=== PATIENT | male | born 1940 | race Caucasian/White ===

== ENCOUNTER → 2016-05-16 | Outpatient (CLI) | payer OTHER ==
[2013-12-09 09:33] VITALS: BP 157/81
[~2016-05-16] MED LIST: ASPI81TA2 PO; CHOL100013 PO; FURO-69 PO; GABA-586 PO; INSU100I13 SQ; LISI10TA2 PO; METF850T2 PO; MULT-208 PO
== END | disposition home or self-care (01) ==
LOC: SPEC 16:50
PROVIDERS: ATTEND Podiatrist Foot & Ankle Surgery
DX: L97.512 Non-pressure chronic ulcer of other part of right foot with fat layer exposed (principal)
CPT/HCPCS: 87071; 87075; 87186; 87205

== ENCOUNTER 2016-07-30 18:09 | Inpatient (IN) | payer OTHER ==
[~2016-07-30] VITALS: Ht 177.8 cm; Wt 141.7 kg
--- NOTE | 2016-07-30 18:25 | PHYS DOC ---
Past Medical History Past Medical History: Diabetes-Type II, High Cholesterol, Hypertension Adult General HPI HPI Patient is a 75 year old MALE who presents with DYSPNEA Pt states 2 weeks of dyspnea, at rest and with exertion. Cough for 2 weeks. No chest pain, no abdominal pain Nausea but no vomiting, no diarrhea, no melena, no Fever or chills Worsening symptoms and went tot PCP today. Pt not well and PCP call EMS to transport to ER for eval. Review of Systems Review of Systems Constitutional: Denies fever or chills [] Eyes: Denies change in visual acuity, redness, or eye pain [] HENT: Denies nasal congestion or sore throat [] Respiratory: Dry cough, dyspnea, no hemoptysis Cardiovascular: no chest pain, no syncope GI: Denies abdominal pain, nausea, vomiting, bloody stools or diarrhea [] : Denies dysuria or hematuria [] Musculoskeletal: Denies back pain or joint pain [] Integument: Denies rash or skin lesions [] Neurologic: Denies headache, focal weakness or sensory changes [] Current Medications Current Medications Current Medications Medications (Trade) Dose Ordered Sig/Gely Start Time Stop Time Status Last Admin Dose Admin Dextrose (Dextrose 50%-Water Syringe) 25 gm 1X ONCE 07/30/16 19:30 07/30/16 19:31 DC 07/30/16 19:25 25 GM Vancomycin HCl 1.25 gm/Sodium Chloride 250 ml @ 166.667 mls/hr 1X ONCE 07/30/16 19:30 07/30/16 20:59 UNV zosyn 3.375g IVPB Allergies Allergies Allergies Coded Allergies Type Severity Reaction Last Updated Verified No Known Drug Allergies 12/09/13 No Physical Exam Physical Exam Constitutional: Well developed, well nourished, no acute distress, non-toxic appearance. [] HENT: Normocephalic, atraumatic, bilateral external ears normal, oropharynx moist, no oral exudates, nose normal. [] Eyes: PERRLA, EOMI, conjunctiva normal, no discharge. [] Neck: Normal range of motion, no tenderness, supple, no stridor. [] Cardiovascular:Heart rate regular rhythm, no murmur [] Lungs & Thorax: Bilateral breath sounds clear to auscultation [] Abdomen: Bowel sounds normal, soft, no tenderness, no masses, no pulsatile masses. [] Skin: Warm, dry, no erythema, no rash. [] Back: No tenderness, no CVA tenderness. [] Extremities: No tenderness, no cyanosis, no clubbing, ROM intact, no edema. [] Neurologic: Alert and oriented X 3, normal motor function, normal sensory function, no focal deficits noted. [] Psychologic: Affect normal, judgement normal, mood normal. [] Current Patient Data Vital Signs Vital Signs Date Time Temp Pulse Resp B/P (MAP) Pulse Ox O2 Delivery O2 Flow Rate FiO2 07/30/16 19:23 70 135/68 (90) 97 Nasal Cannula 4.0 07/30/16 18:15 97.6 20 97.6 Lab Values Laboratory Tests Test 07/30/16 18:45 White Blood Count 10.2 x10^3/uL (4.0-11.0) Red Blood Count 4.72 x10^6/uL (4.30-5.70) Hemoglobin 13.9 g/dL (13.0-17.5) Hematocrit 44.0 % (39.0-53.0) Mean Corpuscular Volume 93 fL (79-100) Mean Corpuscular Hemoglobin 30 pg (25-35) Mean Corpuscular Hemoglobin Concent 32 g/dL (31-37) Red Cell Distribution Width 17.2 % (11.5-14.5) H Platelet Count 261 x10^3/uL (140-400) Neutrophils (%) (Auto) 68 % (31-73) Lymphocytes (%) (Auto) 19 % (24-48) L Monocytes (%) (Auto) 10 % (0-9) H Eosinophils (%) (Auto) 2 % (0-3) Basophils (%) (Auto) 1 % (0-3) Neutrophils # (Auto) 7.0 x10^3uL (1.8-7.7) Lymphocytes # (Auto) 1.9 x10^3/uL (1.0-4.8) Monocytes # (Auto) 1.1 x10^3/uL (0.0-1.1) Eosinophils # (Auto) 0.2 x10^3/uL (0.0-0.7) Basophils # (Auto) 0.1 x10^3/uL (0.0-0.2) Prothrombin Time 14.5 SEC (11.7-14.0) H Prothrombin Time INR 1.2 (0.8-1.1) H D-Dimer (Alecia) 2.31 ug/mlFEU (0.00-0.50) H Sodium Level 142 mmol/L (136-145) Potassium Level 5.4 mmol/L (3.5-5.1) H Chloride Level 109 mmol/L (98-107) H Carbon Dioxide Level 23 mmol/L (21-32) Anion Gap 10 (6-14) Blood Urea Nitrogen 39 mg/dL (8-26) H Creatinine 1.5 mg/dL (0.7-1.3) H Estimated GFR (Cockcroft-Gault) 45.6 Glucose Level 34 mg/dL (70-99) *L Lactic Acid Level 1.6 mmol/L (0.4-2.0) Calcium Level 8.6 mg/dL (8.5-10.1) Magnesium Level 2.2 mg/dL (1.8-2.4) Total Bilirubin 0.9 mg/dL (0.2-1.0) Direct Bilirubin 0.3 mg/dL (0.0-0.2) H Aspartate Amino Transferase (AST) 22 U/L (15-37) Alanine Aminotransferase (ALT) 19 U/L (16-63) Alkaline Phosphatase 83 U/L (46-116) Creatine Kinase 74 U/L (39-308) Creatine Kinase MB (Mass) 5.4 ng/mL (0.0-3.6) H Creatine Kinase MB Relative Index % (0-4) Troponin I Quantitative 0.298 ng/mL (0.000-0.055) IL-Atl-K-Type Natriuretic Peptide 8725 pg/mL (0-449) H Total Protein 7.1 g/dL (6.4-8.2) Albumin 2.7 g/dL (3.4-5.0) L Laboratory Tests 07/30/16 18:45 Laboratory Tests 07/30/16 18:45 EKG EKG EKG 1817 IRREGULAR IRREGULAR LIKELY AFIB/FLUTTER, LOW VOLTAGE, NO STEMI, NONSPECIFIC ST T WAVE CHANGES[] Radiology/Procedures Radiology/Procedures ATIENT: SARABJIT KEEN ACCOUNT: [id number] : 1940 LOCATION: ER AGE: 75 SEX: M EXAM STATUS: REG ER ORD. PHYSICIAN: KOFI MONTES DE OCA MD REASON: CHEST PAIN PROCEDURE: CT CHEST WO CONTRAST PROCEDURE Chest CT without contrast. HISTORY Shortness of air, chest pain TECHNIQUE Noncontrast CT imaging was performed of the chest. Multiplanar reconstruction images are submitted. Exposure: One or more of the following individualized dose reduction techniques were utilized for this exam: 1. Automated exposure control. 2. Adjustment of the mA and/or kV according to patient size. 3. Use of iterative reconstruction technique. COMPARISON None other than chest radiograph earlier the same day FINDINGS There is small right pleural effusion and very small trace left pleural effusion. There is some consolidation of the right middle lobe with air bronchograms. There is also 6 cm transverse focus of density more posteriorly in the region of right lower lobe which may be due to lung consolidation although otherwise cannot exclude underlying mass. There is mild atelectasis posteriorly of the right upper lobe. There is a small quantity of perihepatic fluid present. There is fairly prominent coronary calcification. There is borderline ectatic ascending thoracic aorta 3.6 centimeters, some scattered plaque present. There is no abnormal pericardial effusion. Mild atelectasis left lower lobe. There is no pneumothorax. There is centrilobular emphysema. There is mild diffuse ground-glass density bilaterally. The major airways are patent. There may be pericholecystic fluid although poorly evaluated on this exam. There is multilevel thoracic spondylosis. There is elevation right hemidiaphragm. IMPRESSION 1. There is small dependent right pleural effusion, trace left pleural effusion. There is some consolidation with air bronchograms right middle lobe. There is also more confluent density without significant air bronchograms more posteriorly of the right maksim thorax, may be due to component of lung consolidation of the right lower lobe although underlying mass not excludable by this exam for which attention on short-term followup advised. 2. There is coronary calcification. 3. There is mild perihepatic fluid. There may be pericholecystic fluid although poorly evaluated on this exam. 4. There is emphysema. There is mild ground-glass density bilaterally, could be due to underlying edema. Electronically signed by: Shad Dupree MD (July 30, 2016 20:28:17) DICTATED and SIGNED BY: EFREN DUPREE MD DATE: 07/30/162027 CC: KOFI MONTES DE OCA MD; ARTURO SILVA MD ~ ATIENT: SARABJIT KEEN ACCOUNT: [id number] : 1940 LOCATION: ER AGE: 75 SEX: M EXAM STATUS: REG ER ORD. PHYSICIAN: KOFI MONTES DE OCA MD REASON: DYSPNEA PROCEDURE: PORTABLE CHEST 1V PROCEDURE Single-view chest. HISTORY Dyspnea COMPARISON None available FINDINGS AP upright portable view of the chest is submitted. Patient is rotated for exam. No obvious pneumothorax is identified. There are suspected small to moderate right and small left pleural effusions. There is airspace opacity of the lung bases bilaterally greater on the right, also interstitial opacity with basilar predominance. IMPRESSION Exam is degraded by rotation for exam. There are right greater than left pleural effusions and bibasilar airspace and interstitial opacity greater on the right which could be due to edema although pneumonia not excluded. Electronically signed by: Shad Dupree MD (July 30, 2016 19:37:30) DICTATED and SIGNED BY: EFREN DUPREE MD DATE: 07/30/161936 [] Impressions: 1. Dyspnea 2. Pneumonia with pleural effusion 3. Hypoxia 4. Possible PE, elevated Ddimer 5. Hypoglycemia 6. Cellulitis R leg 7. Elevated Ddimer 8. Hyperkalemia 9. New onset Afib Course & Med Decision Making Course & Med Decision Making Pertinent Labs and Imaging studies reviewed. (See chart for details) Pneumonia, poss PE but unable to get chest CT because of elevated creatinine 1.5 HIgh suspicion with elevated Ddimer but with abnormal CXR VQ will probably be intermediate (discussed with radiology) After discussion with service greeter will give one dose Lovenx and order venous duplex. Discussed with pt and family poss side effect of bleeding but at this point with high suspicion of PE benefits outweigh risks. Gave pt Zosyn for pneumonia and Vancomycin for cellulitis leg Gave amp of D50 for hypogylemia Consulted Cardiology for elevated troponin and new onset afib with elevated BNP Lovenox for afib and discussed with Cardiology by phone Called Dr. Fernando Silva PCP who accepted pt for admission Departure Departure Impression: Primary Impression: Dyspnea Additional Impressions: Pneumonia Elevated troponin Hypoglycemia Atrial fib/flutter, transient Hyperkalemia Disposition: ADMITTED INPATIENT Admitting Physician: Arturo Silva Condition: GUARDED Referrals: ARTURO SILVA MD (PCP) Problem Qualifiers KOFI MONTES DE OCA MD July 30, 2016 18:25
[2016-07-30 18:56] LABS: BASO # 0.1 x10^3/uL (0.0-0.2); BASO % 1 % (0-3); EOS % 2 % (0-3); HEMOGLOBIN 13.9 g/dL (13.0-17.5); LYMPH # 1.9 x10^3/uL (1.0-4.8); LYMPH % 19 % (24-48); MEAN CORPUSCULAR HEMOGLOBIN 30 pg (25-35); MEAN CORPUSCULAR HGB CONC 32 g/dL (31-37); MEAN CORPUSCULAR VOLUME 93 fL (79-100); MONO % 10 % (0-9); NEUT % 68 % (31-73); PLATELET COUNT 261 x10^3/uL (140-400); RED BLOOD COUNT 4.72 x10^6/uL (4.30-5.70); RED CELL DISTRIBUTION WIDTH 17.2 % (11.5-14.5); WHITE BLOOD COUNT 10.2 x10^3/uL (4.0-11.0)
[2016-07-30 19:05] LABS: INR 1.2 (0.8-1.1); PROTHROMBIN TIME PATIENT 14.5 SEC (11.7-14.0)
[2016-07-30 19:14] LABS: ALBUMIN 2.7 g/dL (3.4-5.0); CALCIUM 8.6 mg/dL (8.5-10.1); CREATININE 1.5 mg/dL (0.7-1.3); DIRECT BILIRUBIN 0.3 mg/dL (0.0-0.2); GFR 45.6; MAGNESIUM 2.2 mg/dL (1.8-2.4); POTASSIUM 5.4 mmol/L (3.5-5.1); TOTAL BILIRUBIN 0.9 mg/dL (0.2-1.0); TOTAL PROTEIN 7.1 g/dL (6.4-8.2)
--- NOTE | 2016-07-30 19:14 | HP ---
ADMIT DATE: 07/30/2016 CHIEF COMPLAINT: Shortness of breath. HISTORY OF PRESENT ILLNESS: A 75-year-old white male with a long history of insulin-dependent diabetes and hypertension, came in with 3 weeks of orthopnea and exertional dyspnea. He denies chest pain, cough, sputum production, fever, hemoptysis, but has been worse in the last several days. He was hypoxic in the office with 84% oxygen saturation on room air and mild dyspnea at rest and was sent to the ER for further evaluation. PAST SURGICAL HISTORY: He has had colon cancer resected in the past. MEDICATIONS: Include metformin, insulin, Lasix, lisinopril, amlodipine, and potassium. ALLERGIES: Noted to no drugs. He has never had any myocardial infarction or evidence of congestive heart failure. SOCIAL HISTORY: He stopped smoking about 20-25 years ago, has about a [id number] history. He is sedentary. He is , not physically active, nondrinker. FAMILY HISTORY: Unremarkable. REVIEW OF SYSTEMS: Unremarkable. OBJECTIVE: ENT: All within normal limits. NECK: No masses or nodes. JVD hard to evaluate because of size. CARDIOVASCULAR: Regular rate. No tachycardia or murmur. S3 is not heard. ABDOMEN: Obese, soft, and nontender. EXTREMITIES: 2+ pretibial edema, pitting in nature, below both knees. Pedal pulses are difficult to evaluate. He has a healing lesion on the plantar aspect of his foot. NEUROLOGIC: Physiologic, nonfocal. ASSESSMENT: 1. Exertional dyspnea, edema, and hypoxia, likely cardiac in nature. No history of cardiomyopathy or myocardial infarction in the past. 2. Insulin-dependent diabetes mellitus, fair control. 3. History of hypertension. 4. Former smoker, no documented chronic obstructive pulmonary disease. PLAN: ER evaluation and admit for oxygen saturations and further diagnostic studies. LUKE WATTS MD DR: ALAN/manolo JOB#: [id number] / [id number]
[2016-07-30 19:21] LABS: CKMB MASS 5.4 ng/mL (0.0-3.6); CREATINE KINASE 74 U/L (39-308)
[2016-07-30] MEDS ORDERED: DEXTROSE 50% 25 GM / 50ML DISP.SYRIN. IV ONE (19:30)
[2016-07-30] MEDS ORDERED: VANCOMYCIN 1.25 GM in IV NORMAL SALINE 250ML 250 ML IV ONE (19:30)
--- NOTE | 2016-07-30 19:39 | RAD ---
PROCEDURE Single-view chest. HISTORY Dyspnea COMPARISON None available FINDINGS AP upright portable view of the chest is submitted. Patient is rotated for exam. No obvious pneumothorax is identified. There are suspected small to moderate right and small left pleural effusions. There is airspace opacity of the lung bases bilaterally greater on the right, also interstitial opacity with basilar predominance. IMPRESSION Exam is degraded by rotation for exam. There are right greater than left pleural effusions and bibasilar airspace and interstitial opacity greater on the right which could be due to edema although pneumonia not excluded. Electronically signed by: Shad Cosme MD (July 30, 2016 19:37:30)
[2016-07-30] MEDS ORDERED: VANCOMYCIN 2 GM in IV NORMAL SALINE 500ML BAG 500 ML IV ONE (19:45)
[2016-07-30] MEDS ORDERED: PIPERACILLIN/TAZOBACTAM 4.5 GM in IV NORMAL SALINE 100ML 100 ML IV ONE (19:45)
--- NOTE | 2016-07-30 20:29 | RAD ---
PROCEDURE Chest CT without contrast. HISTORY Shortness of air, chest pain TECHNIQUE Noncontrast CT imaging was performed of the chest. Multiplanar reconstruction images are submitted. Exposure: One or more of the following individualized dose reduction techniques were utilized for this exam: 1. Automated exposure control. 2. Adjustment of the mA and/or kV according to patient size. 3. Use of iterative reconstruction technique. COMPARISON None other than chest radiograph earlier the same day FINDINGS There is small right pleural effusion and very small trace left pleural effusion. There is some consolidation of the right middle lobe with air bronchograms. There is also 6 cm transverse focus of density more posteriorly in the region of right lower lobe which may be due to lung consolidation although otherwise cannot exclude underlying mass. There is mild atelectasis posteriorly of the right upper lobe. There is a small quantity of perihepatic fluid present. There is fairly prominent coronary calcification. There is borderline ectatic ascending thoracic aorta 3.6 centimeters, some scattered plaque present. There is no abnormal pericardial effusion. Mild atelectasis left lower lobe. There is no pneumothorax. There is centrilobular emphysema. There is mild diffuse ground-glass density bilaterally. The major airways are patent. There may be pericholecystic fluid although poorly evaluated on this exam. There is multilevel thoracic spondylosis. There is elevation right hemidiaphragm. IMPRESSION 1. There is small dependent right pleural effusion, trace left pleural effusion. There is some consolidation with air bronchograms right middle lobe. There is also more confluent density without significant air bronchograms more posteriorly of the right maksim thorax, may be due to component of lung consolidation of the right lower lobe although underlying mass not excludable by this exam for which attention on short-term followup advised. 2. There is coronary calcification. 3. There is mild perihepatic fluid. There may be pericholecystic fluid although poorly evaluated on this exam. 4. There is emphysema. There is mild ground-glass density bilaterally, could be due to underlying edema. Electronically signed by: Shad Cosme MD (July 30, 2016 20:28:17)
[2016-07-30 20:37] LABS: BILIRUBIN,URINE NEGATIVE (NEG); GLUCOSE,URINE NEGATIVE (NEG); NITRITE,URINE NEGATIVE (NEG); PROTEIN,URINE 100 mg/dL (NEG-TRACE); UROBILINOGEN,URINE 0.2 mg/dL (0.2 mg/dL)
[2016-07-30 20:47] LABS: BACTERIA,URINE 0 /HPF (0-FEW); RBC,URINE 0 /HPF (0-2)
[2016-07-30 20:48] LABS: SQUAMOUS EPITHELIAL CELL,UR OCC /LPF
[2016-07-30] MEDS ORDERED: MORPHINE SULFATE 2 MG/ML DISP.SYRIN. IV PRN (21:00)
[2016-07-30] MEDS ORDERED: ONDANSETRON PF 4 MG/2 ML VIAL. IV PRN (21:00)
[2016-07-30 21:15] VITALS: BP_SYST 168; BP_SYST 94; BP_DIAS 63; BP_DIAS 78
[2016-07-30 21:30] VITALS: BP 162/82
[2016-07-30 21:45] VITALS: BP 171/89
[2016-07-30 22:00] VITALS: BP 140/83
[2016-07-30 22:15] VITALS: BP 154/70
[2016-07-30] MEDS ORDERED: GABA-586 PO (22:43)
[2016-07-30] MEDS ORDERED: LISI40TA PO (22:43)
[2016-07-30] MEDS ORDERED: FURO40TA4 PO (22:43)
[2016-07-30] MEDS ORDERED: INSU100I13 SQ ×2 (22:43)
[2016-07-30] MEDS ORDERED: METF850T2 PO (22:43)
[2016-07-30] MEDS ORDERED: AMLO2.5T PO (22:43)
[2016-07-30] MEDS ORDERED: POTA10TA12 PO (22:43)
[2016-07-30 23:00] VITALS: BP 145/71
[2016-07-31] VITALS (14 sets, daily range): BP systolic 118–165; BP diastolic 53–91
--- NOTE | 2016-07-31 07:25 | RAD ---
Bilateral lower extremity venous ultrasound, 07/30/2016: History: Bilateral leg pain and swelling Duplex evaluation of the deep veins in the lower extremities was performed including grayscale, color-flow and spectral Doppler analysis. The femoral and popliteal veins demonstrate normal compressibility and normal responses to distal augmentation maneuvers. Color imaging of those vessels shows no evidence of intraluminal clot. The visualized deep veins in both calves are patent. There is moderate subcutaneous edema in both lower legs. There are bilateral popliteal cysts. The right cyst measures 2.9 x 1.6 x 3.3 cm. On the left the popliteal cyst measures 4.6 x 3.8 x 1.3 cm. IMPRESSION: 1. There is no sonographic evidence of deep vein thrombosis in either lower extremity. 2. Bilateral popliteal cysts.
--- NOTE | 2016-07-31 07:31 | EKG ---
[facility] [address] [place] [address] Test Date: 2016-07-30 Test Time: 18:17:55 Pat Name: SARABJIT KEEN Department: Room: 108 1 Gender: M Master Electrician: : 1940 Requested By: KOFI MONTES DE OCA Order Number: [id number] Reading MD: Lazara Silver Measurements Intervals [place] Rate: 71 P: CO: QRS: 6 QRSD: 78 T: -2 QT: 436 QTc: 479 Interpretive Statements ATRIAL FIBRILLATION LOW LIMB LEAD VOLTAGE QRS(T) CONTOUR ABNORMALITY CONSISTENT WITH ANTEROSEPTAL INFARCT AGE UNDETERMINED Electronically Signed On 08-02-2016 20:46:09 CDT by Lazara Silver
[2016-07-31] MEDS ORDERED: FUROSEMIDE 40 MG/4 ML VIAL. IVP ONE (08:45)
[2016-07-31] MEDS ORDERED: LISINOPRIL 40 MG TABLET. PO SCH (09:00)
[2016-07-31] MEDS ORDERED: DEXTROSE 50% 25 GM / 50ML DISP.SYRIN. IV PRN (09:00)
--- NOTE | 2016-07-31 09:03 | PDOC ---
Provider Note Provider Note feels better- vss, has AF controlled rate which is new- feel this is more cardiac than pulmonary, has R pleural effusuion- will check tsh, echo, add duoneb, use rocephin re ? infection, give some lasix- ss insulin here- has hx of copd but no smokes > 10 years- high risk for PE, high d-dimer but neg leg sono- will use daily lovenox now , consider v/q LUKE WATTS MD July 31, 2016 09:03
[2016-07-31 09:38] LABS: CALCIUM 8.3 mg/dL (8.5-10.1); CREATININE 1.4 mg/dL (0.7-1.3); GFR 49.4; POTASSIUM 5.5 mmol/L (3.5-5.1)
[2016-07-31] MEDS: ASPIRIN CHEWABLE 81 MG TABLET. PO SCH (09:44)
--- NOTE | 2016-07-31 10:11 | PDOC2 ---
ELBA MARTINEZ VALIDATION SPECIALIST 07/31/16 1011: CARDIAC CONSULT DATE OF CONSULT Date of Consult DATE: 07/31/16 TIME: 10:10 REASON FOR CONSULT Reason for Consult: elevated troponin REFERRING PHYSICIAN Referring Physician: Dr. Tiffanie Maloney SOURCE Source: Caregiver (daughter), Chart review, Patient HISTORY OF PRESENT ILLNESS HISTORY OF PRESENT ILLNESS 75 year old male with at least a 2 week history of dyspnea at rest and exertion; PND and orthopnea. Most comfortable in the upright position. ? of chest pain. Seen in PCP's office yesterday and sent by ambulance to ER due to worsening symptoms. EKG demonstrates atrial fibrillation, rate controlled which is new for this patient. NT-proBNP > 8000 and and treated with IV furosemide. Lower extremity edema with venous stasis changes though patient reports "normal" for him. Denies chest pain, palpitations, dizziness. D-Dimer was 2.31 with CTa of chest negative for pulmonary embolus. Troponin initially was 0.298 increasing to 0.34. No acute changes in EKG. TSH elevated at > 9. Reason for Visit: NSTEMI, new onset atrial fib, CHF PAST MEDICAL HISTORY Cardiovascular: HTN, Hyperlipidemia CENTRAL NERVOUS SYSTEM: Other (denies) GI: Other (colon cancer) Heme/Onc: Cancer (colon with previous surgery) Hepatobiliary: No pertinent hx Psych: No pertinent hx Musculoskeletal: Osteoarthritis Rheumatologic: No pertinent hx Infectious disease: No pertinent hx ENT: No pertinent hx Renal/: No pertinent hx Endocrine: Diabetes Dermatology: Other (venous stasis) PAST SURGICAL HISTORY Past Surgical History: Colon Resection (about 5 years) FAMILY HISTORY Family History: Other (seizures - son) SOCIAL HISTORY Smoke: Quit (1993) ALCOHOL: other (quit 1993) Drugs: None Lives: Alone CURRENT MEDICATIONS CURRENT MEDICATIONS Current Medications Medications (Trade) Dose Ordered Sig/Gely Route PRN Reason Start Time Stop Time Status Last Admin Dose Admin Dextrose (Dextrose 50%-Water Syringe) 25 gm 1X ONCE IV 07/30/16 19:30 07/30/16 19:31 DC 07/30/16 19:25 Piperacillin Sod/ Tazobactam Sod 4.5 gm/Sodium Chloride 100 ml @ 200 mls/hr 1X ONCE IV 07/30/16 19:45 07/30/16 20:14 DC 07/30/16 19:40 Vancomycin HCl 2 gm/Sodium Chloride 500 ml @ 250 mls/hr 1X ONCE IV 07/30/16 19:45 07/30/16 21:44 DC 07/30/16 20:18 Enoxaparin Sodium (Lovenox 120mg Syringe) 120 mg 1X ONCE SQ 07/30/16 21:15 07/30/16 21:16 DC 07/30/16 22:48 Furosemide (Lasix) 40 mg 1X ONCE IVP 07/31/16 08:45 07/31/16 08:46 DC 07/31/16 09:42 Ceftriaxone Sodium 1 gm/ Sodium Chloride 50 ml @ 100 mls/hr Q24H IV 07/31/16 10:00 07/31/16 09:42 Aspirin (Children'S Aspirin) 81 mg DAILY08 PO 07/31/16 09:30 07/31/16 09:44 Lisinopril (Prinivil) 40 mg DAILY PO 07/31/16 09:00 07/31/16 09:43 Enoxaparin Sodium (Lovenox 100mg Syringe) 100 mg DAILY10 SQ 07/31/16 10:00 07/31/16 09:42 ALLERGIES ALLERGIES: Coded Allergies: No Known Drug Allergies (Unverified , 12/09/13) ROS General: No: Chills, Night Sweats, Fatigue, Malaise, Appetite, Other PSYCHOLOGICAL ROS: No: Anxiety, Behavioral Disorder, Concentration difficultie , Decreased libido, Depression, Disorientation, Hallucinations, Hostility, Irritablity, Memory difficulties, Mood Swings, Obsessive thoughts, Physical abuse, Sexual abuse, Sleep disturbances, Suicidal ideation, Other HEENT: No: Heacaches, Visual Changes, Hearing change, Nasal congestion, Nasal discharge, Oral lesions, Sinus pain, Sore Throat, Epistaxis, Sneezing, Snoring, Tinnitus, Vertigo, Vocal changes, Other ALLERGY AND IMMUNOLOGY: No: Hives, Insect Bite Sensitivity, Itchy/Watery Eyes, Nasal Congestion, Post Nasal Drip, Seasonal Allergies, Other Hematological and Lymphatic: No: Bleeding Problems, Blood Clots, Blood Transfusions, Brusing, Night Sweats, Pallor, Swollen Lymph Nodes, Other ENDOCRINE: No: Breast Changes, Galactorrhea, Hair Pattern Changes, Hot Flashes , Malaise/lethargy, Mood Swings, Palpitations, Polydipsia/polyuria, Skin Changes , Temperature Intolerance, Unexpected Weight Changes, Other Respiratory: YES: Orthopnea, Shortness of breath, SOB with excertion, Tachypnea Cardiovascular: yes Chest Pain, yes Paroxysmal Noc. Dyspnea, yes Edema Gastrointestinal: No Nausea, No Vomiting, No Abdominal Pain, No Diarrhea, No Constipation, No Melena, No Hematochezia, No Other Genitourinary: No Dysuria, No Frequency, No Incontinence, No Hematuria, No Retention, No Discharge, No Urgency, No Pain, No Flank Pain, No Other Musculoskeletal: Yes Joint Pain Neurological: No Behavorial Changes, No Bowel/Bladder ControlChng, No Confusion , No Dizziness, No Gait Disturbance, No Headaches, No Impaired Coord/balance, No Memory Loss, No Numbness/Tingling, No Seizures, No Speech Problems, No Tremors, No Visual Changes, No Weakness, No Other Skin: Yes Other (venous stasis) PHYSICAL EXAM General: Alert, Oriented X3, Cooperative HEENT: Atraumatic, PERRLA Heart: Other (IRRR; no murmur; tele: atrial fib; rate controlled) Abdomen: No tenderness Extremities: Other (3+ LE edema) Skin: Other (venous stasis changes bilateral LE) Neuro: Normal speech MUSCULOSKELETAL: Osteoarthritic changes both hands VITALS VITALS Vital Signs Date Time Temp Pulse Resp B/P (MAP) Pulse Ox O2 Delivery O2 Flow Rate FiO2 07/31/16 09:43 118/56 07/31/16 06:00 60 19 95 Nasal Cannula 5.0 07/31/16 04:00 98.0 98.0 LABS Lab: Laboratory Tests Test 07/30/16 18:45 07/30/16 20:30 07/30/16 21:01 07/31/16 08:22 White Blood Count 10.2 x10^3/uL (4.0-11.0) Red Blood Count 4.72 x10^6/uL (4.30-5.70) Hemoglobin 13.9 g/dL (13.0-17.5) Hematocrit 44.0 % (39.0-53.0) Mean Corpuscular Volume 93 fL (79-100) Mean Corpuscular Hemoglobin 30 pg (25-35) Mean Corpuscular Hemoglobin Concent 32 g/dL (31-37) Red Cell Distribution Width 17.2 % (11.5-14.5) Platelet Count 261 x10^3/uL (140-400) Neutrophils (%) (Auto) 68 % (31-73) Lymphocytes (%) (Auto) 19 % (24-48) Monocytes (%) (Auto) 10 % (0-9) Eosinophils (%) (Auto) 2 % (0-3) Basophils (%) (Auto) 1 % (0-3) Neutrophils # (Auto) 7.0 x10^3uL (1.8-7.7) Lymphocytes # (Auto) 1.9 x10^3/uL (1.0-4.8) Monocytes # (Auto) 1.1 x10^3/uL (0.0-1.1) Eosinophils # (Auto) 0.2 x10^3/uL (0.0-0.7) Basophils # (Auto) 0.1 x10^3/uL (0.0-0.2) Prothrombin Time 14.5 SEC (11.7-14.0) Prothromb Time International Ratio 1.2 (0.8-1.1) D-Dimer (Alecia) 2.31 ug/mlFEU (0.00-0.50) Sodium Level 142 mmol/L (136-145) Potassium Level 5.4 mmol/L (3.5-5.1) Chloride Level 109 mmol/L (98-107) Carbon Dioxide Level 23 mmol/L (21-32) Anion Gap 10 (6-14) Blood Urea Nitrogen 39 mg/dL (8-26) Creatinine 1.5 mg/dL (0.7-1.3) Estimated GFR (Cockcroft-Gault) 45.6 Glucose Level 34 mg/dL (70-99) Lactic Acid Level 1.6 mmol/L (0.4-2.0) Calcium Level 8.6 mg/dL (8.5-10.1) Magnesium Level 2.2 mg/dL (1.8-2.4) Total Bilirubin 0.9 mg/dL (0.2-1.0) Direct Bilirubin 0.3 mg/dL (0.0-0.2) Aspartate Amino Transf (AST/SGOT) 22 U/L (15-37) Alanine Aminotransferase (ALT/SGPT) 19 U/L (16-63) Alkaline Phosphatase 83 U/L (46-116) Creatine Kinase 74 U/L (39-308) Creatine Kinase MB (Mass) 5.4 ng/mL (0.0-3.6) Creatine Kinase MB Relative Index % (0-4) Troponin I Quantitative 0.298 ng/mL (0.000-0.055) JB-Kpb-I-Type Natriuretic Peptide 8725 pg/mL (0-449) Total Protein 7.1 g/dL (6.4-8.2) Albumin 2.7 g/dL (3.4-5.0) Urine Color Yellow Urine Clarity Clear Urine pH 5.0 Urine Specific [place] 1.020 Urine Protein 100 mg/dL (NEG-TRACE) Urine Glucose (UA) Negative mg/dL (NEG) Urine Ketones (Stick) Negative mg/dL (NEG) Urine Blood Negative (NEG) Urine Nitrite Negative (NEG) Urine Bilirubin Negative (NEG) Urine Urobilinogen Dipstick 0.2 mg/dL (0.2 mg/dL) Urine Leukocyte Esterase Negative (NEG) Urine RBC 0 /HPF (0-2) Urine WBC 1-4 /HPF (0-4) Urine Squamous Epithelial Cells Occ /LPF Urine Amorphous Sediment Present /HPF Urine Bacteria 0 /HPF (0-FEW) Urine Mucus Slight /LPF Glucose (Fingerstick) 78 mg/dL (70-99) 102 mg/dL (70-99) Test 07/31/16 08:50 Sodium Level 142 mmol/L (136-145) Potassium Level 5.5 mmol/L (3.5-5.1) Chloride Level 109 mmol/L (98-107) Carbon Dioxide Level 25 mmol/L (21-32) Anion Gap 8 (6-14) Blood Urea Nitrogen 34 mg/dL (8-26) Creatinine 1.4 mg/dL (0.7-1.3) Estimated GFR (Cockcroft-Gault) 49.4 Glucose Level 120 mg/dL (70-99) Calcium Level 8.3 mg/dL (8.5-10.1) Troponin I Quantitative 0.347 ng/mL (0.000-0.055) Thyroid Stimulating Hormone (TSH) 9.266 uIU/mL (0.358-3.74) ASSESSMENT/PLAN ASSESSMENT/PLAN 1. atrial fibrillation, new onset rate controlled without meds however with NSTEMI - will decrease ACEI and add BB continue ASA CHA2DS@-VASc = 5 corresponding to about 6.7% yearly risk of stroke - start OAC with Eliquis 5 mg BID and stop lovenox ? DCCV 2. acute CHF, suspect systolic and diastolic dosed with IV furosemide earlier today repeat with 20 mg later today - re-evalaute in a.m. echo in progress 3. NSTEMI ? type as multiple risk factors for ischemic heart disease (age, sex, HTN, HLD, obesity, remote smoking history); may also be related to CHF/atrial fib will need ischemic evaluation at some point - cath vs MPI - patient/family to decide - either way will need to be able to lie flat to complete further evaluation continue low dose aspirin starting BB 4. HTN mildly elevated decrease ACEI and start BB 5. DM, II per primary service Problems: SHAHRIAR FIGUEREDO MD 07/31/16 2209: CARDIAC CONSULT ALLERGIES ALLERGIES: Coded Allergies: No Known Drug Allergies (Unverified , 12/09/13) ASSESSMENT/PLAN ASSESSMENT/PLAN Pt. seen and examined. Agree with above DIESEL POWERPLANT SUPERVISOR note. 75 y.o male with progressive dyspnea. possibly multifactorial dyspnea (COPD, obesity etc) Has mild LV dysfunction and afib had a discussion with patient's family and him about options. cardioversion versus med therapy and stress versus cath. Family prefers conservative mgmt. Will plan for eliquis, rate control and determine rhythm agent after MPI. Problems: ELBA MARTINEZ APRN July 31, 2016 10:11 SHAHRIAR FIGUEREDO MD July 31, 2016 22:09
[2016-07-31] MEDS: IPRATRPIUM/ALBUTEROL 0.5/2.5MG 3 ML NEBU. NEB SCH ×3 (12:05→19:45)
[2016-07-31] MEDS ORDERED: ANTI-COAG MONITOR BY PHARMACY. MC PRN (12:30)
[2016-07-31] MEDS: INSULIN ASPART 300 UNITS/3 ML INSULN.PEN SQ SCH ×2 (12:39→18:07)
--- NOTE | 2016-07-31 13:01 | CARD ---
APPROVED REPORT EXAM: Two-dimensional and M-mode echocardiogram with Doppler and color Doppler. Other Information Quality : FairHR: 68bpm Rhythm : Atrial Fibrillation INDICATION Atrial Fibrillation Congestive Heart Failure RISK FACTORS Obesity Smoking 2D DIMENSIONS RVDd3.3 (2.9-3.5cm)Left Atrium(2D)4.1 (1.6-4.0cm) IVSd1.2 (0.7-1.1cm)Aortic Root(2D)3.6 (2.0-3.7cm) LVDd5.3 (3.9-5.9cm)LVOT Diameter2.4 (1.8-2.4cm) PWd1.2 (0.7-1.1cm)LVDs3.5 (2.5-4.0cm) FS (%) 33.8 %SV83.5 ml LVEF(%)62.2 (>50%) Aortic Valve AoV Peak Markos.128.4cm/sAoV VTI18.9cm AO Peak GR.6.6mmHgLVOT Peak Markos.93.8cm/s AO Mean GR.3mmHgAVA (VMAX)3.21cm2 Mitral Valve MV E Peak Gr.6mmHgMV E Mean Gr.2mmHg LEFT VENTRICLE The left ventricle is normal size. There is mild concentric left ventricular hypertrophy. Left ventri cayden systolic function is mildly to moderately impaired. The Ejection Fraction is 35-40%. There is mil d to moderate global hypokinesis of the left ventricle. Abnormal septal wall motion is noted suggesti ve of conduction deficit. There is diastolic septal bowing to the left ventricle suggestive of elevat ed right sided pressures. Tissue Doppler assessment suggests moderate left ventricular diastolic dysf unction. No left ventricle thrombus noted on this study. RIGHT VENTRICLE The right ventricle is mildly dilated. There is normal right ventricular wall thickness. The right ve ntricular systolic function is normal. ATRIA The left atrium is mildly dilated. The right atrium size is normal. The interatrial septum is intact with no evidence for an atrial septal defect or patent foramen ovale as noted on 2-D or Doppler imagi ng. AORTIC VALVE The aortic valve is mildly sclerotic. The aortic valve is trileaflet. Doppler and Color Flow revealed no significant aortic regurgitation. There is no significant aortic valvular stenosis. MITRAL VALVE Mitral annular calcification is mild. The mitral valve leaflets are thickened. There is no evidence o f mitral valve prolapse. There is no mitral valve stenosis. Doppler and Color Flow revealed no mitral valve regurgitation noted. TRICUSPID VALVE Doppler and Color Flow revealed no tricuspid valve regurgitation noted. Unable to determine pulmonary artery pressure at exam time. PULMONIC VALVE Doppler and Color Flow revealed no pulmonic valvular regurgitation. There is no pulmonic valvular donald nosis. GREAT VESSELS The aortic root is mildly enlarged. The ascending aorta is normal in size. Pulmonary veins were not w ell visualized. The IVC was obscured, unable to assess. PERICARDIAL EFFUSION There is no evidence of significant pericardial effusion. Critical Notification Critical Value: No <Conclusion> Left ventricle systolic function is mildly to moderately impaired. The Ejection Fraction is 35-40%. Tissue Doppler assessment suggests moderate left ventricular diastolic dysfunction. The right ventricle is mildly dilated. There is mild to moderate global hypokinesis of the left ventricle. Abnormal septal wall motion is no chandrika suggestive of conduction deficit. There is diastolic septal bowing to the left ventricle suggesti ve of elevated right sided pressures.
--- NOTE | 2016-07-31 14:08 | PDOC ---
PULMONARY PROGRESS NOTES Vitals Vital Signs Date Time Temp Pulse Resp B/P (MAP) Pulse Ox O2 Delivery O2 Flow Rate FiO2 07/31/16 12:09 95 Nasal Cannula 4.0 07/31/16 12:00 98.1 72 20 146/78 (100) 98.1 Labs Laboratory Tests Test 07/30/16 18:45 07/30/16 20:30 07/30/16 21:01 07/31/16 08:22 White Blood Count 10.2 x10^3/uL (4.0-11.0) Red Blood Count 4.72 x10^6/uL (4.30-5.70) Hemoglobin 13.9 g/dL (13.0-17.5) Hematocrit 44.0 % (39.0-53.0) Mean Corpuscular Volume 93 fL (79-100) Mean Corpuscular Hemoglobin 30 pg (25-35) Mean Corpuscular Hemoglobin Concent 32 g/dL (31-37) Red Cell Distribution Width 17.2 % (11.5-14.5) Platelet Count 261 x10^3/uL (140-400) Neutrophils (%) (Auto) 68 % (31-73) Lymphocytes (%) (Auto) 19 % (24-48) Monocytes (%) (Auto) 10 % (0-9) Eosinophils (%) (Auto) 2 % (0-3) Basophils (%) (Auto) 1 % (0-3) Neutrophils # (Auto) 7.0 x10^3uL (1.8-7.7) Lymphocytes # (Auto) 1.9 x10^3/uL (1.0-4.8) Monocytes # (Auto) 1.1 x10^3/uL (0.0-1.1) Eosinophils # (Auto) 0.2 x10^3/uL (0.0-0.7) Basophils # (Auto) 0.1 x10^3/uL (0.0-0.2) Prothrombin Time 14.5 SEC (11.7-14.0) Prothromb Time International Ratio 1.2 (0.8-1.1) D-Dimer (Alecia) 2.31 ug/mlFEU (0.00-0.50) Sodium Level 142 mmol/L (136-145) Potassium Level 5.4 mmol/L (3.5-5.1) Chloride Level 109 mmol/L (98-107) Carbon Dioxide Level 23 mmol/L (21-32) Anion Gap 10 (6-14) Blood Urea Nitrogen 39 mg/dL (8-26) Creatinine 1.5 mg/dL (0.7-1.3) Estimated GFR (Cockcroft-Gault) 45.6 Glucose Level 34 mg/dL (70-99) Lactic Acid Level 1.6 mmol/L (0.4-2.0) Calcium Level 8.6 mg/dL (8.5-10.1) Magnesium Level 2.2 mg/dL (1.8-2.4) Total Bilirubin 0.9 mg/dL (0.2-1.0) Direct Bilirubin 0.3 mg/dL (0.0-0.2) Aspartate Amino Transf (AST/SGOT) 22 U/L (15-37) Alanine Aminotransferase (ALT/SGPT) 19 U/L (16-63) Alkaline Phosphatase 83 U/L (46-116) Creatine Kinase 74 U/L (39-308) Creatine Kinase MB (Mass) 5.4 ng/mL (0.0-3.6) Creatine Kinase MB Relative Index % (0-4) Troponin I Quantitative 0.298 ng/mL (0.000-0.055) NC-Shu-V-Type Natriuretic Peptide 8725 pg/mL (0-449) Total Protein 7.1 g/dL (6.4-8.2) Albumin 2.7 g/dL (3.4-5.0) Urine Color Yellow Urine Clarity Clear Urine pH 5.0 Urine Specific [place] 1.020 Urine Protein 100 mg/dL (NEG-TRACE) Urine Glucose (UA) Negative mg/dL (NEG) Urine Ketones (Stick) Negative mg/dL (NEG) Urine Blood Negative (NEG) Urine Nitrite Negative (NEG) Urine Bilirubin Negative (NEG) Urine Urobilinogen Dipstick 0.2 mg/dL (0.2 mg/dL) Urine Leukocyte Esterase Negative (NEG) Urine RBC 0 /HPF (0-2) Urine WBC 1-4 /HPF (0-4) Urine Squamous Epithelial Cells Occ /LPF Urine Amorphous Sediment Present /HPF Urine Bacteria 0 /HPF (0-FEW) Urine Mucus Slight /LPF Glucose (Fingerstick) 78 mg/dL (70-99) 102 mg/dL (70-99) Test 07/31/16 08:50 07/31/16 12:36 Sodium Level 142 mmol/L (136-145) Potassium Level 5.5 mmol/L (3.5-5.1) Chloride Level 109 mmol/L (98-107) Carbon Dioxide Level 25 mmol/L (21-32) Anion Gap 8 (6-14) Blood Urea Nitrogen 34 mg/dL (8-26) Creatinine 1.4 mg/dL (0.7-1.3) Estimated GFR (Cockcroft-Gault) 49.4 Glucose Level 120 mg/dL (70-99) Calcium Level 8.3 mg/dL (8.5-10.1) Troponin I Quantitative 0.347 ng/mL (0.000-0.055) Thyroid Stimulating Hormone (TSH) 9.266 uIU/mL (0.358-3.74) Free Thyroxine 0.77 ng/dL (0.76-1.46) Glucose (Fingerstick) 168 mg/dL (70-99) Laboratory Tests Test 07/30/16 18:45 07/30/16 20:30 07/30/16 21:01 07/31/16 08:22 White Blood Count 10.2 x10^3/uL (4.0-11.0) Red Blood Count 4.72 x10^6/uL (4.30-5.70) Hemoglobin 13.9 g/dL (13.0-17.5) Hematocrit 44.0 % (39.0-53.0) Mean Corpuscular Volume 93 fL (79-100) Mean Corpuscular Hemoglobin 30 pg (25-35) Mean Corpuscular Hemoglobin Concent 32 g/dL (31-37) Red Cell Distribution Width 17.2 % (11.5-14.5) Platelet Count 261 x10^3/uL (140-400) Neutrophils (%) (Auto) 68 % (31-73) Lymphocytes (%) (Auto) 19 % (24-48) Monocytes (%) (Auto) 10 % (0-9) Eosinophils (%) (Auto) 2 % (0-3) Basophils (%) (Auto) 1 % (0-3) Neutrophils # (Auto) 7.0 x10^3uL (1.8-7.7) Lymphocytes # (Auto) 1.9 x10^3/uL (1.0-4.8) Monocytes # (Auto) 1.1 x10^3/uL (0.0-1.1) Eosinophils # (Auto) 0.2 x10^3/uL (0.0-0.7) Basophils # (Auto) 0.1 x10^3/uL (0.0-0.2) Prothrombin Time 14.5 SEC (11.7-14.0) Prothromb Time International Ratio 1.2 (0.8-1.1) D-Dimer (Alecia) 2.31 ug/mlFEU (0.00-0.50) Sodium Level 142 mmol/L (136-145) Potassium Level 5.4 mmol/L (3.5-5.1) Chloride Level 109 mmol/L (98-107) Carbon Dioxide Level 23 mmol/L (21-32) Anion Gap 10 (6-14) Blood Urea Nitrogen 39 mg/dL (8-26) Creatinine 1.5 mg/dL (0.7-1.3) Estimated GFR (Cockcroft-Gault) 45.6 Glucose Level 34 mg/dL (70-99) Lactic Acid Level 1.6 mmol/L (0.4-2.0) Calcium Level 8.6 mg/dL (8.5-10.1) Magnesium Level 2.2 mg/dL (1.8-2.4) Total Bilirubin 0.9 mg/dL (0.2-1.0) Direct Bilirubin 0.3 mg/dL (0.0-0.2) Aspartate Amino Transf (AST/SGOT) 22 U/L (15-37) Alanine Aminotransferase (ALT/SGPT) 19 U/L (16-63) Alkaline Phosphatase 83 U/L (46-116) Creatine Kinase 74 U/L (39-308) Creatine Kinase MB (Mass) 5.4 ng/mL (0.0-3.6) Creatine Kinase MB Relative Index % (0-4) Troponin I Quantitative 0.298 ng/mL (0.000-0.055) SL-Ofx-U-Type Natriuretic Peptide 8725 pg/mL (0-449) Total Protein 7.1 g/dL (6.4-8.2) Albumin 2.7 g/dL (3.4-5.0) Urine Color Yellow Urine Clarity Clear Urine pH 5.0 Urine Specific [place] 1.020 Urine Protein 100 mg/dL (NEG-TRACE) Urine Glucose (UA) Negative mg/dL (NEG) Urine Ketones (Stick) Negative mg/dL (NEG) Urine Blood Negative (NEG) Urine Nitrite Negative (NEG) Urine Bilirubin Negative (NEG) Urine Urobilinogen Dipstick 0.2 mg/dL (0.2 mg/dL) Urine Leukocyte Esterase Negative (NEG) Urine RBC 0 /HPF (0-2) Urine WBC 1-4 /HPF (0-4) Urine Squamous Epithelial Cells Occ /LPF Urine Amorphous Sediment Present /HPF Urine Bacteria 0 /HPF (0-FEW) Urine Mucus Slight /LPF Glucose (Fingerstick) 78 mg/dL (70-99) 102 mg/dL (70-99) Test 07/31/16 08:50 07/31/16 12:36 Sodium Level 142 mmol/L (136-145) Potassium Level 5.5 mmol/L (3.5-5.1) Chloride Level 109 mmol/L (98-107) Carbon Dioxide Level 25 mmol/L (21-32) Anion Gap 8 (6-14) Blood Urea Nitrogen 34 mg/dL (8-26) Creatinine 1.4 mg/dL (0.7-1.3) Estimated GFR (Cockcroft-Gault) 49.4 Glucose Level 120 mg/dL (70-99) Calcium Level 8.3 mg/dL (8.5-10.1) Troponin I Quantitative 0.347 ng/mL (0.000-0.055) Thyroid Stimulating Hormone (TSH) 9.266 uIU/mL (0.358-3.74) Free Thyroxine 0.77 ng/dL (0.76-1.46) Glucose (Fingerstick) 168 mg/dL (70-99) Medications Active Scripts Medications Dose Route/Sig Max Daily Dose Days Date Category Lantus Solostar (Insulin Glargine,Hum.rec.anlog) 100 Unit/1 Ml Insuln.pen 20 Unit SQ DAILYWSUP 07/30/16 Reported Lantus Solostar (Insulin Glargine,Hum.rec.anlog) 100 Unit/1 Ml Insuln.pen 25 Unit SQ DAILYWBKFT 07/30/16 Reported Gabapentin 300 Mg Capsule 300 Mg PO HS 07/30/16 Reported Furosemide 40 Mg Tablet 40 Mg PO DAILY 07/30/16 Reported Metformin Hcl 850 Mg Tablet 850 Mg PO BIDWMEALS 07/30/16 Reported Amlodipine Besylate 2.5 Mg Tablet 2.5 Mg PO DAILY 07/30/16 Reported Lisinopril 40 Mg Tablet 40 Mg PO DAILY 07/30/16 Reported Potassium Chloride 10 Meq Tablet.er 10 Meq PO BID 07/30/16 Reported Aspirin 81 Mg Tab.chew 1 Tab PO DAILY 12/09/13 Reported Impression . FULL CONSULT DICTATED THANKS ACUTE RESP FAILURE MULTIFACTORIAL DOUBT PE AGREE WITH CURRENT RX PRERNA WU MD July 31, 2016 14:08
[2016-07-31] MEDS ORDERED: FUROSEMIDE 20 MG/2 ML VIAL. IVP ONE (14:15)
[2016-07-31] MEDS: GABAPENTIN 300 MG CAPSULE. PO SCH (21:58)
[2016-07-31] MEDS: APIXABAN 5 MG TABLET. PO SCH (21:58)
[2016-07-31] MEDS: METOPROLOL TART IMMED RELEASE 25 MG TABLET. PO SCH (21:58)
[2016-08-01 02:45] VITALS: BP 130/70
--- NOTE | 2016-08-01 04:50 | CONS ---
DATE OF CONSULTATION: 07/31/2016 ATTENDING PHYSICIAN: Dr. Arturo Silva CONSULTING PHYSICIAN: Prerna Wu M.D. REASON FOR CONSULTATION: The patient seen in pulmonary consultation at the request of Dr. Silva for acute respiratory failure. HISTORY OF PRESENT ILLNESS: The patient is a 75-year-old that presented with increasing shortness breath over the last 2 weeks. No fever, chills, some increasing lower extremity edema, paroxysmal nocturnal dyspnea. The patient normally wears no oxygen at home. He was found to be hypoxic in the Emergency Room. According to him about sleep apnea, he does not think he snores. There has been no witnessed apneic spells. He does have some excessive daytime sleepiness. He has never been diagnosed with COPD, CHF or sleep apnea. PAST MEDICAL HISTORY: History of tobacco use, type 2 diabetes, hyperlipidemia, hypertension. PAST SURGICAL HISTORY: No recent major surgeries. SOCIAL HISTORY: Socially he quit tobacco in 1993. Denies any excessive alcohol intake. FAMILY HISTORY: Remarkable for mother with emphysema. ALLERGIES: No known drug allergies. REVIEW OF SYSTEMS: CONSTITUTIONAL: No fever or chills. EYES: No changes in visual acuity. HENT: No nasal congestion or sore throat. RESPIRATORY: As indicated above. CARDIOVASCULAR: No chest pain or pressure. No syncope. GASTROINTESTINAL: No nausea, vomiting, diarrhea. GENITOURINARY: No dysuria or frequency. MUSCULOSKELETAL: Denies any localized muscle aches or joint pain. SKIN: No new skin lesions. He does have some chronic lower extremity cellulitis. NEUROLOGIC: No headaches, diplopia or blurred vision. PHYSICAL EXAMINATION: GENERAL: The patient was in the Intensive Care Unit on oxygen supplementation in no respiratory distress. He has been afebrile since admission. VITAL SIGNS: Noted, O2 saturation was greater than 92%, currently on 4 liters. HEENT: Eyes, the sclerae were nonicteric. NECK: Jugular venous distention was not elevated, could not be assessed secondary to body habitus. CHEST: Full expansion. LUNGS: Clear with crackles in the bases. CARDIOVASCULAR: Regular rate and rhythm with S1, S2, no S3. ABDOMEN: Obese. EXTREMITIES: Evidence of chronic cellulitis and some lymphedema. NEUROLOGIC: The patient was awake, alert, following commands. A detailed neuro exam was not performed. LABORATORY DATA: Reviewed. White count was normal. Hemoglobin and hematocrit were noted. Electrolytes were deranged. Potassium was elevated. Chloride was elevated. BUN was elevated. Creatinine was elevated. Troponin was slightly elevated. TSH was elevated. Albumin upon admission was low at 2.7. UA was noted. IMAGING DATA: Chest x-ray and CT reviewed. The CT showed evidence of vascular congestion, pleural effusion. There are some emphysematous changes and ground glass opacities bilaterally. There is some air bronchograms in the right hemithorax. IMPRESSION: 1. Acute respiratory failure, multifactorial. 2. Acute heart failure. Suspect combination of diastolic and systolic. 3. Abnormal CT of the chest revealing multiple findings including a consolidation of right middle lobe with some air bronchograms, need to follow up with repeat CT in 4-6 weeks. 4. Morbid obesity. 5. Suspect acute on chronic renal failure. 6. Protein malnutrition present upon admission. 7. Elevated D-dimer, nonspecific. 8. Negative venous Dopplers of the lower extremities. PLAN: 1. Suspect most of the patient's symptoms are related to acute heart failure, deconditioning and secondary pulmonary hypertension. Clinical suspicion for PE as well as lower extremity venous Dopplers were negative. 2. Continue diuresis. 3. Consult Cardiology, already performed. 4. Repeat CT of the chest in 4-6 weeks. 5. Nebulized treatments. 6. Once the patient improves, recommend pulmonary function testing. 7. Empiric antibiotics for possible pneumonia in the right middle lobe. I do appreciate the privilege in sharing in the patient's care. The above was discussed with his daughter at the bedside. PRERNA WU MD DR: VAN/manolo JOB#: [id number] / [id number]
[2016-08-01 07:00] VITALS: BP 98/61
[2016-08-01] MEDS: INSULIN ASPART 300 UNITS/3 ML INSULN.PEN SQ SCH ×3 (08:00→17:48)
[2016-08-01] MEDS: IPRATRPIUM/ALBUTEROL 0.5/2.5MG 3 ML NEBU. NEB SCH ×4 (08:49→20:01)
[2016-08-01] MEDS ORDERED: LISINOPRIL 20 MG TABLET PO SCH (09:00)
--- NOTE | 2016-08-01 09:02 | PDOC ---
Provider Note Provider Note weak , sleepy, dry cough- edema less, still AF rate controlled- TSH up a litlle , add low dose levo- more lasix, less acei re lower bp- follow ckd- LUKE WATTS MD August 01, 2016 09:02
[2016-08-01] MEDS: APIXABAN 5 MG TABLET. PO SCH ×2 (09:04→20:47)
[2016-08-01] MEDS: ASPIRIN CHEWABLE 81 MG TABLET. PO SCH (09:04)
[2016-08-01] MEDS: LEVOTHYROXINE 25 MCG TABLET. PO SCH (09:13)
[2016-08-01] MEDS ORDERED: FUROSEMIDE 40 MG/4 ML VIAL. IVP ONE (09:15)
--- NOTE | 2016-08-01 10:32 | PDOC ---
ELBA MARTINEZ ADJUNCT ENGLISH INSTRUCTOR 08/01/16 1032: CARDIO Progress Notes Date and Time Date of Service 08/01/2016 Time of Evaluation 1030 Subjective Subjective: No Chest Pain, Other (breathing better; very lethargic ) Vitals Vitals Vital Signs Date Time Temp Pulse Resp B/P (MAP) Pulse Ox O2 Delivery O2 Flow Rate FiO2 08/01/16 08:53 92 Nasal Cannula 5.0 08/01/16 07:00 98.0 50 22 98/61 (73) 98.0 Weight Weight [ ] Input and Output Intake and Output Intake and Output 08/01/16 06:59 Intake Total 760 ml Output Total 1050 ml Balance -290 ml Intake Oral 760 ml Output Urine Total 1050 ml # Voids 5 Laboratory Labs Laboratory Tests Test 07/31/16 12:36 08/01/16 07:49 08/01/16 09:35 Glucose (Fingerstick) 168 mg/dL (70-99) 129 mg/dL (70-99) Magnesium Level 2.1 mg/dL (1.8-2.4) Microbiology Micro Microbiology 07/30/16 Blood Culture - Preliminary, Resulted NO GROWTH AFTER 1 DAY Physical Exam HEENT: Neck Supple W Full Motion Chest: Symmetric LUNGS: Other (coarse, basilar crackles) Heart: irregularly irregular, other (tele: atrial fib with bradycardic ventricular rate) Abdomen: Soft N/T (truncal obesity) Extremities: Other (dressing on right calf; stasis changes) Neurology: other (lethargic; one word answers) Diagnostic Tests Echocardiogram: Other (LVEF 3540%; moderate global hypokinesis; moderate diastolic dysfunction; RV dilatation; septal wall motion abnormality suggestive of conduction abnormality) Assessment Assessment 1. atrial fibrillation, new onset rate controlled without meds holding BB due to bradycardia - may not tolerate continue ASA CHA2DS@-VASc = 5 corresponding to about 6.7% yearly risk of stroke - start OAC with Eliquis 5 mg BID and stop lovenox family did not want aggressive interventions 2. acute CHF, systolic and diastolic dosed with IV furosemide earlier today renal function unknown today as ordered labs cancelled LV function depressed @ 35-40% 3. NSTEMI ? type as multiple risk factors for ischemic heart disease (age, sex, HTN, HLD, obesity, remote smoking history); may also be related to CHF/atrial fib will need ischemic evaluation at some point - family declines aggressive evaluation; to start MPI today - resting component first 4. HTN low normotensive today 5. DM, II per primary service 6. thyroid disease per primary service Would benefit from SNF or HH at discharge. SHAHRIAR FIGUEREDO MD 08/01/16 2218: CARDIO Progress Notes Plan Plan Pt. seen and examined. Agree with above TELEHEALTH COORDINATOR note. No acute events overnight. Somnolent this a.m. ? CO2 retention BLE is improving. Will plan for 2nd portion of stress in a.m. continue anticoagulation. Will follow. ELBA MARTINEZ APRN August 01, 2016 10:32 SHAHRIAR FIGUEREDO MD August 01, 2016 22:18
[2016-08-01 11:00] VITALS: BP 94/47
[2016-08-01] MEDS: METOPROLOL TART IMMED RELEASE 25 MG TABLET. PO SCH ×2 (11:08→20:52)
--- NOTE | 2016-08-01 12:18 | PDOC ---
PULMONARY PROGRESS NOTES Subjective Pt not more soa weak Vitals Vital Signs Date Time Temp Pulse Resp B/P (MAP) Pulse Ox O2 Delivery O2 Flow Rate FiO2 08/01/16 12:08 92 Nasal Cannula 4.0 08/01/16 11:08 46 98/61 08/01/16 11:00 98.7 18 98.7 ROS: No Nausea, No Chest Pain, No Abdominal Pain, No Increase Cough General: Alert Lungs: Crackles Cardiovascular: S1, S2 Abdomen: Soft, Other (oese) Neuro Exam: Alert Extremities: Other (edema) Skin: Warm Labs Laboratory Tests Test 07/30/16 18:45 07/30/16 20:30 07/30/16 21:01 07/30/16 21:30 White Blood Count 10.2 x10^3/uL (4.0-11.0) Red Blood Count 4.72 x10^6/uL (4.30-5.70) Hemoglobin 13.9 g/dL (13.0-17.5) Hematocrit 44.0 % (39.0-53.0) Mean Corpuscular Volume 93 fL (79-100) Mean Corpuscular Hemoglobin 30 pg (25-35) Mean Corpuscular Hemoglobin Concent 32 g/dL (31-37) Red Cell Distribution Width 17.2 % (11.5-14.5) Platelet Count 261 x10^3/uL (140-400) Neutrophils (%) (Auto) 68 % (31-73) Lymphocytes (%) (Auto) 19 % (24-48) Monocytes (%) (Auto) 10 % (0-9) Eosinophils (%) (Auto) 2 % (0-3) Basophils (%) (Auto) 1 % (0-3) Neutrophils # (Auto) 7.0 x10^3uL (1.8-7.7) Lymphocytes # (Auto) 1.9 x10^3/uL (1.0-4.8) Monocytes # (Auto) 1.1 x10^3/uL (0.0-1.1) Eosinophils # (Auto) 0.2 x10^3/uL (0.0-0.7) Basophils # (Auto) 0.1 x10^3/uL (0.0-0.2) Prothrombin Time 14.5 SEC (11.7-14.0) Prothromb Time International Ratio 1.2 (0.8-1.1) D-Dimer (Alecia) 2.31 ug/mlFEU (0.00-0.50) Sodium Level 142 mmol/L (136-145) Potassium Level 5.4 mmol/L (3.5-5.1) Chloride Level 109 mmol/L (98-107) Carbon Dioxide Level 23 mmol/L (21-32) Anion Gap 10 (6-14) Blood Urea Nitrogen 39 mg/dL (8-26) Creatinine 1.5 mg/dL (0.7-1.3) Estimated GFR (Cockcroft-Gault) 45.6 Glucose Level 34 mg/dL (70-99) Lactic Acid Level 1.6 mmol/L (0.4-2.0) Calcium Level 8.6 mg/dL (8.5-10.1) Magnesium Level 2.2 mg/dL (1.8-2.4) Total Bilirubin 0.9 mg/dL (0.2-1.0) Direct Bilirubin 0.3 mg/dL (0.0-0.2) Aspartate Amino Transf (AST/SGOT) 22 U/L (15-37) Alanine Aminotransferase (ALT/SGPT) 19 U/L (16-63) Alkaline Phosphatase 83 U/L (46-116) Creatine Kinase 74 U/L (39-308) Creatine Kinase MB (Mass) 5.4 ng/mL (0.0-3.6) Creatine Kinase MB Relative Index % (0-4) Troponin I Quantitative 0.298 ng/mL (0.000-0.055) VS-Pho-B-Type Natriuretic Peptide 8725 pg/mL (0-449) Total Protein 7.1 g/dL (6.4-8.2) Albumin 2.7 g/dL (3.4-5.0) Urine Color Yellow Urine Clarity Clear Urine pH 5.0 Urine Specific [place] 1.020 Urine Protein 100 mg/dL (NEG-TRACE) Urine Glucose (UA) Negative mg/dL (NEG) Urine Ketones (Stick) Negative mg/dL (NEG) Urine Blood Negative (NEG) Urine Nitrite Negative (NEG) Urine Bilirubin Negative (NEG) Urine Urobilinogen Dipstick 0.2 mg/dL (0.2 mg/dL) Urine Leukocyte Esterase Negative (NEG) Urine RBC 0 /HPF (0-2) Urine WBC 1-4 /HPF (0-4) Urine Squamous Epithelial Cells Occ /LPF Urine Amorphous Sediment Present /HPF Urine Bacteria 0 /HPF (0-FEW) Urine Mucus Slight /LPF Glucose (Fingerstick) 78 mg/dL (70-99) Nasal Screen MRSA (PCR) Negative (Negative) Test 07/31/16 08:22 07/31/16 08:50 07/31/16 12:36 08/01/16 07:49 Glucose (Fingerstick) 102 mg/dL (70-99) 168 mg/dL (70-99) 129 mg/dL (70-99) Sodium Level 142 mmol/L (136-145) Potassium Level 5.5 mmol/L (3.5-5.1) Chloride Level 109 mmol/L (98-107) Carbon Dioxide Level 25 mmol/L (21-32) Anion Gap 8 (6-14) Blood Urea Nitrogen 34 mg/dL (8-26) Creatinine 1.4 mg/dL (0.7-1.3) Estimated GFR (Cockcroft-Gault) 49.4 Glucose Level 120 mg/dL (70-99) Calcium Level 8.3 mg/dL (8.5-10.1) Troponin I Quantitative 0.347 ng/mL (0.000-0.055) Thyroid Stimulating Hormone (TSH) 9.266 uIU/mL (0.358-3.74) Free Thyroxine 0.77 ng/dL (0.76-1.46) Total Triiodothyronine 67 ng/dL (71-180) Test 08/01/16 09:35 08/01/16 12:02 Magnesium Level 2.1 mg/dL (1.8-2.4) Glucose (Fingerstick) 141 mg/dL (70-99) Laboratory Tests Test 07/31/16 12:36 08/01/16 07:49 08/01/16 09:35 08/01/16 12:02 Glucose (Fingerstick) 168 mg/dL (70-99) 129 mg/dL (70-99) 141 mg/dL (70-99) Magnesium Level 2.1 mg/dL (1.8-2.4) Medications Active Scripts Medications Dose Route/Sig Max Daily Dose Days Date Category Lantus Solostar (Insulin Glargine,Hum.rec.anlog) 100 Unit/1 Ml Insuln.pen 20 Unit SQ DAILYWSUP 07/30/16 Reported Lantus Solostar (Insulin Glargine,Hum.rec.anlog) 100 Unit/1 Ml Insuln.pen 25 Unit SQ DAILYWBKFT 07/30/16 Reported Gabapentin 300 Mg Capsule 300 Mg PO HS 07/30/16 Reported Furosemide 40 Mg Tablet 40 Mg PO DAILY 07/30/16 Reported Metformin Hcl 850 Mg Tablet 850 Mg PO BIDWMEALS 07/30/16 Reported Amlodipine Besylate 2.5 Mg Tablet 2.5 Mg PO DAILY 07/30/16 Reported Lisinopril 40 Mg Tablet 40 Mg PO DAILY 07/30/16 Reported Potassium Chloride 10 Meq Tablet.er 10 Meq PO BID 07/30/16 Reported Aspirin 81 Mg Tab.chew 1 Tab PO DAILY 12/09/13 Reported Impression . 1. Acute respiratory failure, multifactorial. 2. Acute heart failure. Suspect combination of diastolic and systolic. 3. Abnormal CT of the chest revealing multiple findings including a consolidation of right middle lobe with some air bronchograms, need to follow up with repeat CT in 4-6 weeks. 4. Morbid obesity. 5. Suspect acute on chronic renal failure. 6. Protein malnutrition present upon admission. 7. Elevated D-dimer, nonspecific. 8. Negative venous Dopplers of the lower extremities. 9. NSTEMI Plan . cardiac work up in progress 1. possible ischemic work up in future 2. Continue diuresis. 3. Control rate 4. Repeat CT of the chest in 4-6 weeks. 5. Nebulized treatments. 6. Once the patient improves, recommend pulmonary function testing. 7. Empiric antibiotics for possible pneumonia in the right middle lobe. PRERNA WU MD August 01, 2016 12:18
[2016-08-01 15:00] VITALS: BP 107/62
[2016-08-01 19:16] VITALS: BP 121/53
[2016-08-01] MEDS: GABAPENTIN 300 MG CAPSULE. PO SCH (20:47)
[2016-08-01 22:30] VITALS: BP 134/71
[2016-08-02 02:58] VITALS: BP 118/55
[2016-08-02 04:39] LABS: CALCIUM 8.3 mg/dL (8.5-10.1); GFR 32.7
[2016-08-02] MEDS: LEVOTHYROXINE 25 MCG TABLET. PO SCH (05:10)
[2016-08-02 07:30] VITALS: BP 137/67
[2016-08-02] MEDS ORDERED: REGADENOSON 0.4 MG/5 ML DISP.SYRIN. IV ONE (07:45)
[2016-08-02] MEDS: ASPIRIN CHEWABLE 81 MG TABLET. PO SCH (08:00)
[2016-08-02] MEDS: IPRATRPIUM/ALBUTEROL 0.5/2.5MG 3 ML NEBU. NEB SCH ×4 (08:23→20:32)
[2016-08-02] MEDS: INSULIN ASPART 300 UNITS/3 ML INSULN.PEN SQ SCH ×5 (08:29→17:15)
[2016-08-02] MEDS: APIXABAN 5 MG TABLET. PO SCH (09:00)
[2016-08-02] MEDS ORDERED: LISINOPRIL 5 MG TABLET. PO SCH (09:00)
--- NOTE | 2016-08-02 09:56 | PDOC ---
Provider Note Provider Note vss, still af rate controlled- now has had some BRB in radhika, K+ up 6 and creat to 2- suspect due to eliquis and lisinopril, dc asa/eliquis /lisinopril as risk > benefit at present, follow bmp, 1 dose kayexalate LUKE WATTS MD August 02, 2016 09:56
[2016-08-02] MEDS ORDERED: SODIUM POLYSTYRENE SULFONATE 15 GM/60 ML ORAL.SUSP. PO ONE ×2 (10:00→15:30)
--- NOTE | 2016-08-02 10:04 | PDOC ---
DAVID WHITAKER ORACLE FUSION DEVELOPER 08/02/16 1004: CARDIO Progress Notes Date and Time Date of Service 08/02/2016 Time of Evaluation 0940 Subjective Subjective: No Chest Pain, No Palpitations, No Dizziness, Other (mild SOA) Vitals Vitals Vital Signs Date Time Temp Pulse Resp B/P (MAP) Pulse Ox O2 Delivery O2 Flow Rate FiO2 08/02/16 08:26 Nasal Cannula 4.0 08/02/16 08:25 92 08/02/16 07:30 97.8 63 18 137/67 (90) 97.8 Weight Weight [ ] Input and Output Intake and Output Intake and Output 08/02/16 07:00 Intake Total 1250 ml Output Total 250 ml Balance 1000 ml Intake Oral 1250 ml Output Urine Total 250 ml # Bowel Movements 4 Laboratory Labs Laboratory Tests Test 08/01/16 12:02 08/01/16 17:30 08/01/16 21:01 08/02/16 03:40 Glucose (Fingerstick) 141 mg/dL (70-99) 226 mg/dL (70-99) 221 mg/dL (70-99) Sodium Level 142 mmol/L (136-145) Potassium Level 6.0 mmol/L (3.5-5.1) Chloride Level 107 mmol/L (98-107) Carbon Dioxide Level 28 mmol/L (21-32) Anion Gap 7 (6-14) Blood Urea Nitrogen 46 mg/dL (8-26) Creatinine 2.0 mg/dL (0.7-1.3) Estimated GFR (Cockcroft-Gault) 32.7 Glucose Level 165 mg/dL (70-99) Calcium Level 8.3 mg/dL (8.5-10.1) Test 08/02/16 07:51 Glucose (Fingerstick) 194 mg/dL (70-99) Microbiology Micro Microbiology 07/30/16 Blood Culture - Preliminary, Resulted NO GROWTH AFTER 2 DAYS Physical Exam HEENT: Neck Supple W Full Motion Chest: Symmetric LUNGS: Other (bibasilar crackles) Heart: irregularly irregular, other (tele: atrial fib with bradycardic ventricular rate) Abdomen: Soft N/T (truncal obesity) Extremities: No Calf Tenderness, Other (dressing on right calf; stasis changes- - 2+ bilateral LE pitting edema) Neurology: alert, oriented, follow commands Diagnostic Tests Echocardiogram: Other (LVEF 3540%; moderate global hypokinesis; moderate diastolic dysfunction; RV dilatation; septal wall motion abnormality suggestive of conduction abnormality) Assessment Assessment 1. Atrial fibrillation/aflutter, new onset rate controlled without meds, atrial flutter with variable conduction No AV selvin blocking agents for now with intermittent bradycardia. HR currently in the 60s Will hold Eliquis till GI bleed is ruled out. Will need at least ECASA 81 mg for stroke prevention. On hold currently due to #2. Will reeval use after H/H this PM Would recommend event monitor to further note AFIB burden and check for any SSS. but noted that family did not want aggressive interventions 2. Melena blood in stool per staff during MPI. Hgb down to 12.7 Defer to PCP 3. Acute CHF, systolic and diastolic LV function depressed @ 35-40% Restart lasix IV therapy 4. NSTEMI Mild elevated troponin likely from AFIB/CHF/cardiomyopathy MPI completion today to completely rule out ischemic etiology 5. HTN controlled 6. DM, II per primary service 7. Hypothyroidism TSH 9.2, T3 low per PCP 7. KAYLEN on CKD: K at 6.0. Likely CKD3 IV lasix, kayexelate BMP/Mg/hemogram this afternoon 8. COPD Per pulmonary SHAHRIAR FIGUEREDO MD 08/03/16 2226: CARDIO Progress Notes Plan Plan Late entry for 08/02/2016 Pt. seen and examined. AGree with above LVN LPN note. No acute events. Poor appetite. I discussed with the family the stress findings. awaiting their decision about cath. WIll follow along. needs SNU and diuresis. DAVID WHITAKER APRN August 02, 2016 10:04 SHAHRIAR FIGUEREDO MD August 03, 2016 22:26
--- NOTE | 2016-08-02 10:28 | RAD ---
Portable chest, 08/02/2016: History: Congestive heart failure, shortness of breath Comparison is made to a study from 07/30/2016. The heart is at the upper limits of normal in size. The upper lobe pulmonary vessels are now within normal limits. There is persistent blunting of the lateral costophrenic angles compatible with small pleural effusions. There is mild underlying bibasilar atelectasis/infiltrate. The right basilar opacities have improved since 07/30/2016. No new abnormality is detected. IMPRESSION: Slightly improved congestive heart failure with small residual pleural effusions and mild bibasilar atelectasis/infiltrate.
[2016-08-02 10:46] LABS: BASO # 0.1 x10^3/uL (0.0-0.2); BASO % 1 % (0-3); EOS % 2 % (0-3); HEMOGLOBIN 12.7 g/dL (13.0-17.5); LYMPH # 1.4 x10^3/uL (1.0-4.8); LYMPH % 16 % (24-48); MEAN CORPUSCULAR HEMOGLOBIN 29 pg (25-35); MEAN CORPUSCULAR HGB CONC 31 g/dL (31-37); MEAN CORPUSCULAR VOLUME 94 fL (79-100); MONO % 11 % (0-9); NEUT % 69 % (31-73); PLATELET COUNT 214 x10^3/uL (140-400); RED BLOOD COUNT 4.34 x10^6/uL (4.30-5.70); RED CELL DISTRIBUTION WIDTH 17.9 % (11.5-14.5); WHITE BLOOD COUNT 8.6 x10^3/uL (4.0-11.0)
[2016-08-02 11:21] VITALS: BP 139/90
--- NOTE | 2016-08-02 12:23 | RAD ---
APPROVED REPORT Test Type: Pharmacological Stress Nurse/Tech: Jane Dumont R.N. Test Indications: SOB, elevated troponin Cardiac History: htn,copd, DM Medications: See Electronic Medical Record Medical History: See Electronic Medical Record Resting ECG: AFib Resting Heart Rate: 74 bpm Resting Blood Pressure: 109/59mmHg Pretest Chest Pain: No chest pain Nurse/Tech Notes Consent: The procedure was explained to the patient in lay terms. Informed consent was witnessed. Nam eout was entered into Checkr. History and Stress Test performed by [facility]. Details Pharmacologic stress testing was performed using 0.4mg per 5ml of regadenoson given intravenously ove r 7-10 seconds. Stress Symptoms Dyspnea POST EXERCISE Reason for Termination: Infusion complete Max HR: 82 bpm Max Blood Pressure: 123/60mmHg Blood Pressure response to exercise: Normal blood pressure response during stress. Heart Rate response to exercise: wnl Chest Pain: No. Arrhythmia: No. ST Change: No. INTERPRETATION Stress EKG Conclusion: Baseline lateral wall infarct. No acute ischemic changes with vasodilator infu jimbo. Imaging Protocol IMAGE PROTOCOL: Rest Tc-99m/stress Tc-99m 2 days Rest: Stress: Viability: Radiopharm.Tc99m [id number] Sestamibi Dose34.2mCi 32.1mCi Duration 10min. 10min. Img Date 08/01/2016 08/02/2016 Inj-Img [id number]. 60min. Rest Admin Site:IV - Right HandAdministrator:KINGSLEY Cotton Stress Admin Site: IV - Right HandAdministrator: KINGS[facility] STRESS DATA End Diast. Vol.123.0mlAv. Heart Rate75.0bpm End Syst. Vol.60.0mlCO Index BSA0.0L/min Myocardial Vhbb336.0gEject. Jkidbtnp78.0% Stress Rates Pk. Fill Rate3.35EDV/secLVtime Pk. Fill 129.66msec Pk. Empty Rate3.00ESV/secLVtime Pk. Knnnj406.37msec 03/13 Pk. Fill1.90EDV/sec Stress Scores Regional WT0.00Summed WT18.00 Regional WM0.00Summed WM10.00 LV Perfusion There is a large sized, severe in intensity basal to distal inferior, inferolateral and lateral predo minantly FIXED defect suggestive of prior infarct, with mild periinfarct reversibility. Based on trac er uptake in the rest images, the defect is mostly non-viable. Wall Motion Lateral, inferolateral akinesis. EF 45% LV Perf. Quant 17 Seg. SSS25.00 17 Seg. SRS22.00 17 Seg. SDS4.00 Stress Defect Extent (% LAD)0.00Rest Defect Extent (% LAD)1.90Rev. Defect Extent (% LAD)0.00 Stress Defect Extent (% LCX) 97.50Rest Defect Extent (% LCX)100.00Rev. Defect Extent (% LCX)50.0 0 Stress Defect Extent (% RCA)44.40Rest Defect Extent (% RCA)35.60Rev. Defect Extent (% RCA)32.20 Stress Defect Extent (% SUSANNE)40.90Rest Defect Extent (% SUSANNE)34.10Rev. Defect Extent (% SUSANNE)26.50 Other Information Quality:Good Risk Assessment: Moderate-High Risk Conclusion 1. No evidence of EKG changes with vasodilator infusion. 2. There is a large sized, severe in intensity basal to distal inferior, inferolateral and lateral pr edominantly FIXED defect suggestive of prior infarct, with mild periinfarct reversibility. Based on t racer uptake in the rest images, the defect is mostly non-viable. 3. Mild LV dysfunction. EF 45% 4. Moderate to high risk study for future cardiac events Recommendations Consider coronary angiography on an outpt basis after delineation of GI bleeding issues.
[2016-08-02] MEDS: FUROSEMIDE 40 MG/4 ML VIAL. IVP SCH (12:42)
[2016-08-02] MEDS: METOPROLOL TART IMMED RELEASE 25 MG TABLET. PO SCH ×2 (12:43→20:45)
[2016-08-02 15:01] LABS: HEMATOCRIT 38.4 % (39.0-53.0); HEMOGLOBIN 12.1 g/dL (13.0-17.5); RED BLOOD COUNT 4.12 x10^6/uL (4.30-5.70); RED CELL DISTRIBUTION WIDTH 17.2 % (11.5-14.5); WHITE BLOOD COUNT 9.3 x10^3/uL (4.0-11.0)
[2016-08-02 15:14] LABS: GFR 32.7; MAGNESIUM 2.3 mg/dL (1.8-2.4); POTASSIUM 5.6 mmol/L (3.5-5.1)
[2016-08-02 15:28] VITALS: BP 119/66
--- NOTE | 2016-08-02 18:06 | PDOC ---
PULMONARY PROGRESS NOTES Subjective PT FEELS BETTER LESS SOA Vitals Vital Signs Date Time Temp Pulse Resp B/P (MAP) Pulse Ox O2 Delivery O2 Flow Rate FiO2 08/02/16 15:28 98.1 56 20 119/66 (83) 96 Nasal Cannula 3.0 98.1 ROS: No Nausea, No Chest Pain, No Abdominal Pain, No Increase Cough General: Alert Lungs: Clear Cardiovascular: S1, S2 Abdomen: Soft, Other (oese) Neuro Exam: Alert Extremities: Other (edema) Skin: Warm Labs Laboratory Tests Test 07/31/16 21:01 08/01/16 07:49 08/01/16 09:35 08/01/16 12:02 Glucose (Fingerstick) 229 mg/dL (70-99) 129 mg/dL (70-99) 141 mg/dL (70-99) Magnesium Level 2.1 mg/dL (1.8-2.4) Test 08/01/16 17:30 08/01/16 21:01 08/02/16 03:40 08/02/16 07:51 Glucose (Fingerstick) 226 mg/dL (70-99) 221 mg/dL (70-99) 194 mg/dL (70-99) White Blood Count 8.6 x10^3/uL (4.0-11.0) Red Blood Count 4.34 x10^6/uL (4.30-5.70) Hemoglobin 12.7 g/dL (13.0-17.5) Hematocrit 41.0 % (39.0-53.0) Mean Corpuscular Volume 94 fL (79-100) Mean Corpuscular Hemoglobin 29 pg (25-35) Mean Corpuscular Hemoglobin Concent 31 g/dL (31-37) Red Cell Distribution Width 17.9 % (11.5-14.5) Platelet Count 214 x10^3/uL (140-400) Neutrophils (%) (Auto) 69 % (31-73) Lymphocytes (%) (Auto) 16 % (24-48) Monocytes (%) (Auto) 11 % (0-9) Eosinophils (%) (Auto) 2 % (0-3) Basophils (%) (Auto) 1 % (0-3) Neutrophils # (Auto) 6.0 x10^3uL (1.8-7.7) Lymphocytes # (Auto) 1.4 x10^3/uL (1.0-4.8) Monocytes # (Auto) 1.0 x10^3/uL (0.0-1.1) Eosinophils # (Auto) 0.2 x10^3/uL (0.0-0.7) Basophils # (Auto) 0.1 x10^3/uL (0.0-0.2) Sodium Level 142 mmol/L (136-145) Potassium Level 6.0 mmol/L (3.5-5.1) Chloride Level 107 mmol/L (98-107) Carbon Dioxide Level 28 mmol/L (21-32) Anion Gap 7 (6-14) Blood Urea Nitrogen 46 mg/dL (8-26) Creatinine 2.0 mg/dL (0.7-1.3) Estimated GFR (Cockcroft-Gault) 32.7 Glucose Level 165 mg/dL (70-99) Calcium Level 8.3 mg/dL (8.5-10.1) Test 08/02/16 12:41 08/02/16 14:55 08/02/16 17:02 Glucose (Fingerstick) 201 mg/dL (70-99) 175 mg/dL (70-99) White Blood Count 9.3 x10^3/uL (4.0-11.0) Red Blood Count 4.12 x10^6/uL (4.30-5.70) Hemoglobin 12.1 g/dL (13.0-17.5) Hematocrit 38.4 % (39.0-53.0) Mean Corpuscular Volume 93 fL (79-100) Mean Corpuscular Hemoglobin 29 pg (25-35) Mean Corpuscular Hemoglobin Concent 31 g/dL (31-37) Red Cell Distribution Width 17.2 % (11.5-14.5) Platelet Count 180 x10^3/uL (140-400) Sodium Level 142 mmol/L (136-145) Potassium Level 5.6 mmol/L (3.5-5.1) Chloride Level 107 mmol/L (98-107) Carbon Dioxide Level 25 mmol/L (21-32) Anion Gap 10 (6-14) Blood Urea Nitrogen 48 mg/dL (8-26) Creatinine 2.0 mg/dL (0.7-1.3) Estimated GFR (Cockcroft-Gault) 32.7 Glucose Level 176 mg/dL (70-99) Calcium Level 8.0 mg/dL (8.5-10.1) Magnesium Level 2.3 mg/dL (1.8-2.4) Laboratory Tests Test 08/01/16 21:01 08/02/16 03:40 08/02/16 07:51 08/02/16 12:41 Glucose (Fingerstick) 221 mg/dL (70-99) 194 mg/dL (70-99) 201 mg/dL (70-99) White Blood Count 8.6 x10^3/uL (4.0-11.0) Red Blood Count 4.34 x10^6/uL (4.30-5.70) Hemoglobin 12.7 g/dL (13.0-17.5) Hematocrit 41.0 % (39.0-53.0) Mean Corpuscular Volume 94 fL (79-100) Mean Corpuscular Hemoglobin 29 pg (25-35) Mean Corpuscular Hemoglobin Concent 31 g/dL (31-37) Red Cell Distribution Width 17.9 % (11.5-14.5) Platelet Count 214 x10^3/uL (140-400) Neutrophils (%) (Auto) 69 % (31-73) Lymphocytes (%) (Auto) 16 % (24-48) Monocytes (%) (Auto) 11 % (0-9) Eosinophils (%) (Auto) 2 % (0-3) Basophils (%) (Auto) 1 % (0-3) Neutrophils # (Auto) 6.0 x10^3uL (1.8-7.7) Lymphocytes # (Auto) 1.4 x10^3/uL (1.0-4.8) Monocytes # (Auto) 1.0 x10^3/uL (0.0-1.1) Eosinophils # (Auto) 0.2 x10^3/uL (0.0-0.7) Basophils # (Auto) 0.1 x10^3/uL (0.0-0.2) Sodium Level 142 mmol/L (136-145) Potassium Level 6.0 mmol/L (3.5-5.1) Chloride Level 107 mmol/L (98-107) Carbon Dioxide Level 28 mmol/L (21-32) Anion Gap 7 (6-14) Blood Urea Nitrogen 46 mg/dL (8-26) Creatinine 2.0 mg/dL (0.7-1.3) Estimated GFR (Cockcroft-Gault) 32.7 Glucose Level 165 mg/dL (70-99) Calcium Level 8.3 mg/dL (8.5-10.1) Test 08/02/16 14:55 08/02/16 17:02 White Blood Count 9.3 x10^3/uL (4.0-11.0) Red Blood Count 4.12 x10^6/uL (4.30-5.70) Hemoglobin 12.1 g/dL (13.0-17.5) Hematocrit 38.4 % (39.0-53.0) Mean Corpuscular Volume 93 fL (79-100) Mean Corpuscular Hemoglobin 29 pg (25-35) Mean Corpuscular Hemoglobin Concent 31 g/dL (31-37) Red Cell Distribution Width 17.2 % (11.5-14.5) Platelet Count 180 x10^3/uL (140-400) Sodium Level 142 mmol/L (136-145) Potassium Level 5.6 mmol/L (3.5-5.1) Chloride Level 107 mmol/L (98-107) Carbon Dioxide Level 25 mmol/L (21-32) Anion Gap 10 (6-14) Blood Urea Nitrogen 48 mg/dL (8-26) Creatinine 2.0 mg/dL (0.7-1.3) Estimated GFR (Cockcroft-Gault) 32.7 Glucose Level 176 mg/dL (70-99) Calcium Level 8.0 mg/dL (8.5-10.1) Magnesium Level 2.3 mg/dL (1.8-2.4) Glucose (Fingerstick) 175 mg/dL (70-99) Medications Active Scripts Medications Dose Route/Sig Max Daily Dose Days Date Category Lantus Solostar (Insulin Glargine,Hum.rec.anlog) 100 Unit/1 Ml Insuln.pen 20 Unit SQ DAILYWSUP 07/30/16 Reported Lantus Solostar (Insulin Glargine,Hum.rec.anlog) 100 Unit/1 Ml Insuln.pen 25 Unit SQ DAILYWBKFT 07/30/16 Reported Gabapentin 300 Mg Capsule 300 Mg PO HS 07/30/16 Reported Furosemide 40 Mg Tablet 40 Mg PO DAILY 07/30/16 Reported Metformin Hcl 850 Mg Tablet 850 Mg PO BIDWMEALS 07/30/16 Reported Amlodipine Besylate 2.5 Mg Tablet 2.5 Mg PO DAILY 07/30/16 Reported Lisinopril 40 Mg Tablet 40 Mg PO DAILY 07/30/16 Reported Potassium Chloride 10 Meq Tablet.er 10 Meq PO BID 07/30/16 Reported Aspirin 81 Mg Tab.chew 1 Tab PO DAILY 12/09/13 Reported Impression . 1. Acute respiratory failure, multifactorial. 2. Acute heart failure. Suspect combination of diastolic and systolic. 3. Abnormal CT of the chest revealing multiple findings including a consolidation of right middle lobe with some air bronchograms, need to follow up with repeat CT in 4-6 weeks. 4. Morbid obesity. 5. Suspect acute on chronic renal failure. 6. Protein malnutrition present upon admission. 7. Elevated D-dimer, nonspecific. 8. Negative venous Dopplers of the lower extremities. 9. NSTEMI Plan . CARDIAC STRESS TODAY WILL CONTIUE THE SAME PT 1. possible ischemic work up in future with cath 2. Continue diuresis. 3. Control rate 4. Repeat CT of the chest in 4-6 weeks. 5. Nebulized treatments. 6. Once the patient improves, recommend pulmonary function testing. 7. Empiric antibiotics for possible pneumonia in the right middle lobe. PRERNA WU MD August 02, 2016 18:06
[2016-08-02 19:45] VITALS: BP 118/82
[2016-08-02] MEDS: GABAPENTIN 300 MG CAPSULE. PO SCH (20:40)
[2016-08-02 23:30] VITALS: BP 112/57
[2016-08-03 03:41] VITALS: BP 112/63
[2016-08-03] MEDS: LEVOTHYROXINE 25 MCG TABLET. PO SCH (06:26)
[2016-08-03 07:00] VITALS: BP 127/104
[2016-08-03] MEDS: IPRATRPIUM/ALBUTEROL 0.5/2.5MG 3 ML NEBU. NEB SCH ×4 (07:59→20:31)
[2016-08-03] MEDS: INSULIN ASPART 300 UNITS/3 ML INSULN.PEN SQ SCH ×3 (08:40→17:36)
[2016-08-03] MEDS: METOPROLOL TART IMMED RELEASE 25 MG TABLET. PO SCH (09:00)
--- NOTE | 2016-08-03 09:08 | PDOC ---
Provider Note Provider Note vss, no temp- K+ 5.6 last after kaYEXALATE, REPEAT CREAT PENDING SUSPECT ACEI INTOLERANCE- will hold asa/eliquis still, no sxs of c diff- mpi shows large scar, ? cath as high cad risk- he confirms he wants full code LUKE WATTS MD August 03, 2016 09:08
[2016-08-03 09:50] LABS: HEMOGLOBIN 12.5 g/dL (13.0-17.5); RED BLOOD COUNT 4.2 x10^6/uL (4.30-5.70); RED CELL DISTRIBUTION WIDTH 16.8 % (11.5-14.5); WHITE BLOOD COUNT 8.2 x10^3/uL (4.0-11.0)
[2016-08-03 10:03] LABS: CALCIUM 8.1 mg/dL (8.5-10.1); GFR 32.7
[2016-08-03 10:05] LABS: POTASSIUM 5.4 mmol/L (3.5-5.1)
[2016-08-03] MEDS: FUROSEMIDE 40 MG/4 ML VIAL. IVP SCH (10:16)
[2016-08-03 11:00] VITALS: BP 118/53
--- NOTE | 2016-08-03 11:10 | PDOC ---
RADHAELBA ROUSE FACE BURLER 08/03/16 1109: CARDIO Progress Notes Date and Time Date of Service 08/03/2016 Time of Evaluation 1140 Subjective Subjective: No Chest Pain, No Palpitations, No Dizziness, Other (appears eupneic at rest in chair - has oxygen off) Vitals Vitals Vital Signs Date Time Temp Pulse Resp B/P (MAP) Pulse Ox O2 Delivery O2 Flow Rate FiO2 08/03/16 09:00 52 08/03/16 08:12 Nasal Cannula 4.0 08/03/16 08:00 97 08/03/16 07:00 98.6 17 127/104 (112) 98.6 Weight Weight [ ] Input and Output Intake and Output Intake and Output 08/03/16 07:00 Intake Total 2220 ml Output Total 350 ml Balance 1870 ml Intake Oral 2220 ml Output Urine Total 350 ml # Voids 2 # Bowel Movements 5 Laboratory Labs Laboratory Tests Test 08/02/16 12:41 08/02/16 14:55 08/02/16 17:02 08/02/16 20:49 Glucose (Fingerstick) 201 mg/dL (70-99) 175 mg/dL (70-99) 193 mg/dL (70-99) White Blood Count 9.3 x10^3/uL (4.0-11.0) Red Blood Count 4.12 x10^6/uL (4.30-5.70) Hemoglobin 12.1 g/dL (13.0-17.5) Hematocrit 38.4 % (39.0-53.0) Mean Corpuscular Volume 93 fL (79-100) Mean Corpuscular Hemoglobin 29 pg (25-35) Mean Corpuscular Hemoglobin Concent 31 g/dL (31-37) Red Cell Distribution Width 17.2 % (11.5-14.5) Platelet Count 180 x10^3/uL (140-400) Sodium Level 142 mmol/L (136-145) Potassium Level 5.6 mmol/L (3.5-5.1) Chloride Level 107 mmol/L (98-107) Carbon Dioxide Level 25 mmol/L (21-32) Anion Gap 10 (6-14) Blood Urea Nitrogen 48 mg/dL (8-26) Creatinine 2.0 mg/dL (0.7-1.3) Estimated GFR (Cockcroft-Gault) 32.7 Glucose Level 176 mg/dL (70-99) Calcium Level 8.0 mg/dL (8.5-10.1) Magnesium Level 2.3 mg/dL (1.8-2.4) Test 08/03/16 07:40 08/03/16 09:35 Glucose (Fingerstick) 158 mg/dL (70-99) White Blood Count 8.2 x10^3/uL (4.0-11.0) Red Blood Count 4.20 x10^6/uL (4.30-5.70) Hemoglobin 12.5 g/dL (13.0-17.5) Hematocrit 39.0 % (39.0-53.0) Mean Corpuscular Volume 93 fL (79-100) Mean Corpuscular Hemoglobin 30 pg (25-35) Mean Corpuscular Hemoglobin Concent 32 g/dL (31-37) Red Cell Distribution Width 16.8 % (11.5-14.5) Platelet Count 180 x10^3/uL (140-400) Sodium Level 140 mmol/L (136-145) Potassium Level 5.4 mmol/L (3.5-5.1) Chloride Level 105 mmol/L (98-107) Carbon Dioxide Level 27 mmol/L (21-32) Anion Gap 8 (6-14) Blood Urea Nitrogen 47 mg/dL (8-26) Creatinine 2.0 mg/dL (0.7-1.3) Estimated GFR (Cockcroft-Gault) 32.7 Glucose Level 212 mg/dL (70-99) Calcium Level 8.1 mg/dL (8.5-10.1) Microbiology Micro Microbiology 07/30/16 Blood Culture - Preliminary, Resulted NO GROWTH AFTER 3 DAYS Radiology Rad Impression 08/01/2016: Lexican MPI Conclusion 1. No evidence of EKG changes with vasodilator infusion. 2. There is a large sized, severe in intensity basal to distal inferior, inferolateral and lateral predominantly FIXED defect suggestive of prior infarct , with mild jey-infarct reversibility. Based on tracer uptake in the rest images, the defect is mostly non-viable. 3. Mild LV dysfunction. EF 45% 4. Moderate to high risk study for future cardiac events Recommendations Consider coronary angiography on an outpt basis after delineation of GI bleeding issues. Physical Exam HEENT: Neck Supple W Full Motion Chest: Symmetric LUNGS: Other (crackles in right posterior base only; diminished throughout) Heart: irregularly irregular, other (tele: atrial fib ) Abdomen: Soft N/T (truncal obesity) Extremities: No Calf Tenderness, Other (dressing on right calf; stasis changes- - 2+ bilateral LE pitting edema) Neurology: alert, oriented, follow commands Diagnostic Tests Echocardiogram: Other (LVEF 3540%; moderate global hypokinesis; moderate diastolic dysfunction; RV dilatation; septal wall motion abnormality suggestive of conduction abnormality) Assessment Assessment 1. Atrial fibrillation/aflutter, new onset BB remain on hold - no evidence of bradycardia in the last 24 hours = will d/ c BB [id number] = 5 with OAC recommendation previous tx with ASA and Eliquis subsequently d/c due to melena GI consult to evaluate melena ( also now reporting bowel incontinence) event monitor at discharge to evaluate atrial fib burden/SSS - though likely will need SNF care, precluding the use of event monitor 2. Melena none today GI consult pending for recommendation re: use of ASA and/or OAC 3. Acute CHF, systolic and diastolic LV function depressed @ 35-40% dose with IV Lasix today - CR up to 2 no BB due to bradycardia no ACEI/ARB due to renal function 4. NSTEMI Regadenoson MPI abnormal - large,mostly fixed distal inferior, inferolateral defect; mild jey-infarct reversibility; LVEF 45% outpatient cardiac cath recommended - discussed procedure with and patient including risks and need for additional consults; she will discuss with family and then inform staff of her decision has previously voiced not wanted aggressive therapy/intervention GI evaluation pending to evaluate use of OAC/ASA in the setting of recent melena will also need Nephrology evaluation with concern for SUSAN in the setting of KAYLEN/CKD 5. COPD/acute respiratory failure ? DEBBIE per PULM 6. morbid obesity Would benefit from SNF at discharge - SS consulted ? 's ability to physically care for patient SHAHRIAR FIGUEREDO MD 08/03/16 0180: CARDIO Progress Notes Plan Plan Pt. seen and examined. Agree with above PAIRER [employer]STANDARD Note. No acute events overnight. HR stable and in afib. Currently eating better. No more GIB. On exam he has some mild LE edema. Labs reviewed. GI notes reviewed. Meds reviewed. Discussed extensively with family. GIven possible GIB issues, will hold off on anticoagulation Continue ASA only, repeat outpt hgb and consider addition of eliquis if needed. Given renal insufficiency and fixed defect on stress testing, will plan for consideration of outpt cath if needed. Currently not able to tolerate b-blockers or terrell-inh due to bradycardia and renal failure. Unclear baseline If cr at baseline, would favor starting low dose Terrell-inh and uptitrate on outpt basis. Agree with continued lasix. Poor overall prognosis. Thanks for consult. ELBA MARTINEZ APRN August 03, 2016 11:09 SHAHRIAR FIGUEREDO MD August 03, 2016 22:35
--- NOTE | 2016-08-03 13:05 | PDOC2 ---
GI CONSULT Reason For Consult: Melena, A Fib needs OAC and possible heart cath HPI: HPI: 75 y/o male evaluated for SOA, admitted 07/30 w/ new onset A Fib. Cardiology following for this, NSTEMI, and CHF. Was started on Eliquis and continued on ASA, had MPI, consideration for cardiac cath as outpt. Pulm is also following for resp failure and abnormal chest CT; receiving empiric atbx for possible pneumonia. Per RN, had red-tinged stools throughout the day yesterday. Eliquis and ASA currently held for this reason, hence GI consult. Stools are now normal in color. GI history is significant for colon cancer s/p resection and chemo. Reports last colonoscopy within the past couple years was normal. Unsure about previous EGD. Normal bowel pattern is diarrhea, can't really tell me how many stools he has each day, probably <5. No n/v, reflux/heartburn, dysphagia, abd pain, constipation, or change in appetite. Denies previous GI bleeding. Occasionally takes NSAIDs (Aleve - says rarely). Hgb from 13.9 to 12.5, BUN and Cr are elevated/stable. PMH: PMH: A Fib, CHF, HTN, HLD, colon cancer s/p resection and chemo, OA, DM, venous stasis, hypothyroidism, appendectomy, bilateral inguinal hernia repair, ankle surgery FH: Family History: No pertinent hx Social History: Smoke: Quit (1993) ALCOHOL: other (quit 1993) Drugs: None ROS: GEN: Denies fevers, chills, sweats HEENT: Denies blurred vision, sore throat CV: Denies chest pain RESP: +SOA GI: Per HPI : Denies hematuria, dysuria ENDO: Denies weight changes NEURO: Denies confusion, dizziness MSK: +leg swelling SKIN: Denies jaundice, pruritus Vitals: Vitals: Vital Signs Date Time Temp Pulse Resp B/P (MAP) Pulse Ox O2 Delivery O2 Flow Rate FiO2 08/03/16 11:37 Nasal Cannula 4.0 08/03/16 11:00 97.8 49 17 118/53 (74) 98 97.8 Labs: Labs: Laboratory Tests Test 08/02/16 14:55 08/02/16 17:02 08/02/16 20:49 08/03/16 07:40 White Blood Count 9.3 x10^3/uL (4.0-11.0) Red Blood Count 4.12 x10^6/uL (4.30-5.70) Hemoglobin 12.1 g/dL (13.0-17.5) Hematocrit 38.4 % (39.0-53.0) Mean Corpuscular Volume 93 fL (79-100) Mean Corpuscular Hemoglobin 29 pg (25-35) Mean Corpuscular Hemoglobin Concent 31 g/dL (31-37) Red Cell Distribution Width 17.2 % (11.5-14.5) Platelet Count 180 x10^3/uL (140-400) Sodium Level 142 mmol/L (136-145) Potassium Level 5.6 mmol/L (3.5-5.1) Chloride Level 107 mmol/L (98-107) Carbon Dioxide Level 25 mmol/L (21-32) Anion Gap 10 (6-14) Blood Urea Nitrogen 48 mg/dL (8-26) Creatinine 2.0 mg/dL (0.7-1.3) Estimated GFR (Cockcroft-Gault) 32.7 Glucose Level 176 mg/dL (70-99) Calcium Level 8.0 mg/dL (8.5-10.1) Magnesium Level 2.3 mg/dL (1.8-2.4) Glucose (Fingerstick) 175 mg/dL (70-99) 193 mg/dL (70-99) 158 mg/dL (70-99) Test 08/03/16 09:35 08/03/16 12:22 White Blood Count 8.2 x10^3/uL (4.0-11.0) Red Blood Count 4.20 x10^6/uL (4.30-5.70) Hemoglobin 12.5 g/dL (13.0-17.5) Hematocrit 39.0 % (39.0-53.0) Mean Corpuscular Volume 93 fL (79-100) Mean Corpuscular Hemoglobin 30 pg (25-35) Mean Corpuscular Hemoglobin Concent 32 g/dL (31-37) Red Cell Distribution Width 16.8 % (11.5-14.5) Platelet Count 180 x10^3/uL (140-400) Sodium Level 140 mmol/L (136-145) Potassium Level 5.4 mmol/L (3.5-5.1) Chloride Level 105 mmol/L (98-107) Carbon Dioxide Level 27 mmol/L (21-32) Anion Gap 8 (6-14) Blood Urea Nitrogen 47 mg/dL (8-26) Creatinine 2.0 mg/dL (0.7-1.3) Estimated GFR (Cockcroft-Gault) 32.7 Glucose Level 212 mg/dL (70-99) Calcium Level 8.1 mg/dL (8.5-10.1) Glucose (Fingerstick) 197 mg/dL (70-99) Allergies: Coded Allergies: No Known Drug Allergies (Unverified , 12/09/13) Medications: Current Medications Medications (Trade) Dose Ordered Sig/Gely Route PRN Reason Start Time Stop Time Status Last Admin Dose Admin Sodium Polystyrene Sulfonate (Kayexalate) 15 gm 1X ONCE PO 08/02/16 15:30 08/02/16 15:31 DC 08/02/16 17:03 Imaging: Imaging: CT chest IMPRESSION 1. There is small dependent right pleural effusion, trace left pleural effusion. There is some consolidation with air bronchograms right middle lobe. There is also more confluent density without significant air bronchograms more posteriorly of the right maksim thorax, may be due to component of lung consolidation of the right lower lobe although underlying mass not excludable by this exam for which attention on short-term followup advised. 2. There is coronary calcification. 3. There is mild perihepatic fluid. There may be pericholecystic fluid although poorly evaluated on this exam. 4. There is emphysema. There is mild ground-glass density bilaterally, could be due to underlying edema. LE US IMPRESSION: 1. There is no sonographic evidence of deep vein thrombosis in either lower extremity. 2. Bilateral popliteal cysts. MPI Conclusion 1. No evidence of EKG changes with vasodilator infusion. 2. There is a large sized, severe in intensity basal to distal inferior, inferolateral and lateral predominantly FIXED defect suggestive of prior infarct , with mild periinfarct reversibility. Based on tracer uptake in the rest images , the defect is mostly non-viable. 3. Mild LV dysfunction. EF 45% 4. Moderate to high risk study for future cardiac events Recommendations Consider coronary angiography on an outpt basis after delineation of GI bleeding issues. CXR IMPRESSION: Slightly improved congestive heart failure with small residual pleural effusions and mild bibasilar atelectasis/infiltrate. PE: GEN: NAD, up to chair HEENT: atraumatic, PERRL LUNGS: decreased, nasal cannula HEART: irregular ABD: BS+, obese, non-tender EXTREMITY: BLE pitting edema, wrapped NEURO/PSYCH: A & O 3 A/P: A/P: A Fib, NSTEMI, CHF -started on Eliquis here, had been on ASA at home, both currently held for possible GI bleeding -had MPI, considering cardiac cath as outpt Resp failure, possible pneumonia KAYLEN, hyperkalemia Blood in stool -red-tinged stools yesterday -Hgb 13.9 to 12.5 H/o colon cancer s/p resection and chemo -believes last colonoscopy a couple years ago was normal -- Will review w/ Dr. Joel and office records. D/w cardiology - ?okay for at least ASA. HUNG PETERS August 03, 2016 13:05
[2016-08-03 15:00] VITALS: BP 125/63
--- NOTE | 2016-08-03 15:38 | PDOC ---
PULMONARY PROGRESS NOTES Subjective NOT MORE SOA Vitals Vital Signs Date Time Temp Pulse Resp B/P (MAP) Pulse Ox O2 Delivery O2 Flow Rate FiO2 08/03/16 15:00 98.3 60 18 125/63 (83) 97 Nasal Cannula 4.0 98.3 ROS: No Nausea, No Chest Pain, No Abdominal Pain, No Increase Cough General: Alert Lungs: Clear Cardiovascular: S1, S2 Abdomen: Soft, Other (oese) Neuro Exam: Alert Extremities: Other (edema) Skin: Warm Labs Laboratory Tests Test 08/01/16 17:30 08/01/16 21:01 08/02/16 03:40 08/02/16 07:51 Glucose (Fingerstick) 226 mg/dL (70-99) 221 mg/dL (70-99) 194 mg/dL (70-99) White Blood Count 8.6 x10^3/uL (4.0-11.0) Red Blood Count 4.34 x10^6/uL (4.30-5.70) Hemoglobin 12.7 g/dL (13.0-17.5) Hematocrit 41.0 % (39.0-53.0) Mean Corpuscular Volume 94 fL (79-100) Mean Corpuscular Hemoglobin 29 pg (25-35) Mean Corpuscular Hemoglobin Concent 31 g/dL (31-37) Red Cell Distribution Width 17.9 % (11.5-14.5) Platelet Count 214 x10^3/uL (140-400) Neutrophils (%) (Auto) 69 % (31-73) Lymphocytes (%) (Auto) 16 % (24-48) Monocytes (%) (Auto) 11 % (0-9) Eosinophils (%) (Auto) 2 % (0-3) Basophils (%) (Auto) 1 % (0-3) Neutrophils # (Auto) 6.0 x10^3uL (1.8-7.7) Lymphocytes # (Auto) 1.4 x10^3/uL (1.0-4.8) Monocytes # (Auto) 1.0 x10^3/uL (0.0-1.1) Eosinophils # (Auto) 0.2 x10^3/uL (0.0-0.7) Basophils # (Auto) 0.1 x10^3/uL (0.0-0.2) Sodium Level 142 mmol/L (136-145) Potassium Level 6.0 mmol/L (3.5-5.1) Chloride Level 107 mmol/L (98-107) Carbon Dioxide Level 28 mmol/L (21-32) Anion Gap 7 (6-14) Blood Urea Nitrogen 46 mg/dL (8-26) Creatinine 2.0 mg/dL (0.7-1.3) Estimated GFR (Cockcroft-Gault) 32.7 Glucose Level 165 mg/dL (70-99) Calcium Level 8.3 mg/dL (8.5-10.1) Test 08/02/16 12:41 08/02/16 14:55 08/02/16 17:02 08/02/16 20:49 Glucose (Fingerstick) 201 mg/dL (70-99) 175 mg/dL (70-99) 193 mg/dL (70-99) White Blood Count 9.3 x10^3/uL (4.0-11.0) Red Blood Count 4.12 x10^6/uL (4.30-5.70) Hemoglobin 12.1 g/dL (13.0-17.5) Hematocrit 38.4 % (39.0-53.0) Mean Corpuscular Volume 93 fL (79-100) Mean Corpuscular Hemoglobin 29 pg (25-35) Mean Corpuscular Hemoglobin Concent 31 g/dL (31-37) Red Cell Distribution Width 17.2 % (11.5-14.5) Platelet Count 180 x10^3/uL (140-400) Sodium Level 142 mmol/L (136-145) Potassium Level 5.6 mmol/L (3.5-5.1) Chloride Level 107 mmol/L (98-107) Carbon Dioxide Level 25 mmol/L (21-32) Anion Gap 10 (6-14) Blood Urea Nitrogen 48 mg/dL (8-26) Creatinine 2.0 mg/dL (0.7-1.3) Estimated GFR (Cockcroft-Gault) 32.7 Glucose Level 176 mg/dL (70-99) Calcium Level 8.0 mg/dL (8.5-10.1) Magnesium Level 2.3 mg/dL (1.8-2.4) Test 5/26/17 07:40 08/03/16 09:35 08/03/16 12:22 Glucose (Fingerstick) 158 mg/dL (70-99) 197 mg/dL (70-99) White Blood Count 8.2 x10^3/uL (4.0-11.0) Red Blood Count 4.20 x10^6/uL (4.30-5.70) Hemoglobin 12.5 g/dL (13.0-17.5) Hematocrit 39.0 % (39.0-53.0) Mean Corpuscular Volume 93 fL (79-100) Mean Corpuscular Hemoglobin 30 pg (25-35) Mean Corpuscular Hemoglobin Concent 32 g/dL (31-37) Red Cell Distribution Width 16.8 % (11.5-14.5) Platelet Count 180 x10^3/uL (140-400) Sodium Level 140 mmol/L (136-145) Potassium Level 5.4 mmol/L (3.5-5.1) Chloride Level 105 mmol/L (98-107) Carbon Dioxide Level 27 mmol/L (21-32) Anion Gap 8 (6-14) Blood Urea Nitrogen 47 mg/dL (8-26) Creatinine 2.0 mg/dL (0.7-1.3) Estimated GFR (Cockcroft-Gault) 32.7 Glucose Level 212 mg/dL (70-99) Calcium Level 8.1 mg/dL (8.5-10.1) Laboratory Tests Test 08/02/16 17:02 08/02/16 20:49 08/03/16 07:40 08/03/16 09:35 Glucose (Fingerstick) 175 mg/dL (70-99) 193 mg/dL (70-99) 158 mg/dL (70-99) White Blood Count 8.2 x10^3/uL (4.0-11.0) Red Blood Count 4.20 x10^6/uL (4.30-5.70) Hemoglobin 12.5 g/dL (13.0-17.5) Hematocrit 39.0 % (39.0-53.0) Mean Corpuscular Volume 93 fL (79-100) Mean Corpuscular Hemoglobin 30 pg (25-35) Mean Corpuscular Hemoglobin Concent 32 g/dL (31-37) Red Cell Distribution Width 16.8 % (11.5-14.5) Platelet Count 180 x10^3/uL (140-400) Sodium Level 140 mmol/L (136-145) Potassium Level 5.4 mmol/L (3.5-5.1) Chloride Level 105 mmol/L (98-107) Carbon Dioxide Level 27 mmol/L (21-32) Anion Gap 8 (6-14) Blood Urea Nitrogen 47 mg/dL (8-26) Creatinine 2.0 mg/dL (0.7-1.3) Estimated GFR (Cockcroft-Gault) 32.7 Glucose Level 212 mg/dL (70-99) Calcium Level 8.1 mg/dL (8.5-10.1) Test 08/03/16 12:22 Glucose (Fingerstick) 197 mg/dL (70-99) Medications Active Scripts Medications Dose Route/Sig Max Daily Dose Days Date Category Lantus Solostar (Insulin Glargine,Hum.rec.anlog) 100 Unit/1 Ml Insuln.pen 20 Unit SQ DAILYWSUP 07/30/16 Reported Lantus Solostar (Insulin Glargine,Hum.rec.anlog) 100 Unit/1 Ml Insuln.pen 25 Unit SQ DAILYWBKFT 07/30/16 Reported Gabapentin 300 Mg Capsule 300 Mg PO HS 07/30/16 Reported Furosemide 40 Mg Tablet 40 Mg PO DAILY 07/30/16 Reported Metformin Hcl 850 Mg Tablet 850 Mg PO BIDWMEALS 07/30/16 Reported Amlodipine Besylate 2.5 Mg Tablet 2.5 Mg PO DAILY 07/30/16 Reported Lisinopril 40 Mg Tablet 40 Mg PO DAILY 07/30/16 Reported Potassium Chloride 10 Meq Tablet.er 10 Meq PO BID 07/30/16 Reported Aspirin 81 Mg Tab.chew 1 Tab PO DAILY 12/09/13 Reported Impression . 1. Acute respiratory failure, multifactorial. 2. Acute heart failure. Suspect combination of diastolic and systolic. 3. Abnormal CT of the chest revealing multiple findings including a consolidation of right middle lobe with some air bronchograms, need to follow up with repeat CT in 4-6 weeks. 4. Morbid obesity. 5. Suspect acute on chronic renal failure. 6. Protein malnutrition present upon admission. 7. Elevated D-dimer, nonspecific. 8. Negative venous Dopplers of the lower extremities. 9. NSTEMI ABNORMAL STRESS TEST Plan . 6 MIN WALK WILL NEED OUPT SLEEP STUDY WILL CONTIUE THE SAME REPEAT CT IN 4-6 WEEKS ORAL ANTIBX HOME OK BY PRERNA TALBERT MD August 03, 2016 15:38
[2016-08-03] MEDS: ASPIRIN CHEWABLE 81 MG TABLET. PO SCH (17:00)
[2016-08-03 19:10] VITALS: BP 134/56
[2016-08-03] MEDS: AMOXICILLIN/K CLAV 875/125MG TABLET. PO SCH (20:47)
[2016-08-03] MEDS: GABAPENTIN 300 MG CAPSULE. PO SCH (20:47)
[2016-08-03 22:36] VITALS: BP 105/60
[2016-08-04 02:43] VITALS: BP 140/66
[2016-08-04 07:00] VITALS: BP 132/64
[2016-08-04] MEDS: ASPIRIN CHEWABLE 81 MG TABLET. PO SCH (07:58)
[2016-08-04] MEDS: AMOXICILLIN/K CLAV 875/125MG TABLET. PO SCH ×2 (07:58→20:49)
[2016-08-04] MEDS: FUROSEMIDE 40 MG/4 ML VIAL. IVP SCH (07:58)
[2016-08-04] MEDS: LEVOTHYROXINE 25 MCG TABLET. PO SCH (07:58)
[2016-08-04] MEDS: IPRATRPIUM/ALBUTEROL 0.5/2.5MG 3 ML NEBU. NEB SCH ×4 (08:03→19:17)
[2016-08-04] MEDS: INSULIN ASPART 300 UNITS/3 ML INSULN.PEN SQ SCH ×3 (08:04→17:38)
--- NOTE | 2016-08-04 09:17 | PDOC ---
G I PROGRESS NOTE Subjective No GI complaints. Doesn't think any more blood in stool. Physical Exam Obese. Lung clear anteriorly. RRR Abdomen soft, not tender nor distended. Review of Relevant I have reviewed the following items carlene (where applicable) has been applied. Labs Laboratory Tests Test 08/02/16 12:41 08/02/16 14:55 08/02/16 17:02 08/02/16 20:49 Glucose (Fingerstick) 201 mg/dL (70-99) 175 mg/dL (70-99) 193 mg/dL (70-99) White Blood Count 9.3 x10^3/uL (4.0-11.0) Red Blood Count 4.12 x10^6/uL (4.30-5.70) Hemoglobin 12.1 g/dL (13.0-17.5) Hematocrit 38.4 % (39.0-53.0) Mean Corpuscular Volume 93 fL (79-100) Mean Corpuscular Hemoglobin 29 pg (25-35) Mean Corpuscular Hemoglobin Concent 31 g/dL (31-37) Red Cell Distribution Width 17.2 % (11.5-14.5) Platelet Count 180 x10^3/uL (140-400) Sodium Level 142 mmol/L (136-145) Potassium Level 5.6 mmol/L (3.5-5.1) Chloride Level 107 mmol/L (98-107) Carbon Dioxide Level 25 mmol/L (21-32) Anion Gap 10 (6-14) Blood Urea Nitrogen 48 mg/dL (8-26) Creatinine 2.0 mg/dL (0.7-1.3) Estimated GFR (Cockcroft-Gault) 32.7 Glucose Level 176 mg/dL (70-99) Calcium Level 8.0 mg/dL (8.5-10.1) Magnesium Level 2.3 mg/dL (1.8-2.4) Test 08/03/16 07:40 08/03/16 09:35 08/03/16 12:22 08/03/16 17:31 Glucose (Fingerstick) 158 mg/dL (70-99) 197 mg/dL (70-99) 177 mg/dL (70-99) White Blood Count 8.2 x10^3/uL (4.0-11.0) Red Blood Count 4.20 x10^6/uL (4.30-5.70) Hemoglobin 12.5 g/dL (13.0-17.5) Hematocrit 39.0 % (39.0-53.0) Mean Corpuscular Volume 93 fL (79-100) Mean Corpuscular Hemoglobin 30 pg (25-35) Mean Corpuscular Hemoglobin Concent 32 g/dL (31-37) Red Cell Distribution Width 16.8 % (11.5-14.5) Platelet Count 180 x10^3/uL (140-400) Sodium Level 140 mmol/L (136-145) Potassium Level 5.4 mmol/L (3.5-5.1) Chloride Level 105 mmol/L (98-107) Carbon Dioxide Level 27 mmol/L (21-32) Anion Gap 8 (6-14) Blood Urea Nitrogen 47 mg/dL (8-26) Creatinine 2.0 mg/dL (0.7-1.3) Estimated GFR (Cockcroft-Gault) 32.7 Glucose Level 212 mg/dL (70-99) Calcium Level 8.1 mg/dL (8.5-10.1) Test 08/03/16 21:38 Glucose (Fingerstick) 196 mg/dL (70-99) Laboratory Tests Test 08/03/16 09:35 08/03/16 12:22 08/03/16 17:31 08/03/16 21:38 White Blood Count 8.2 x10^3/uL (4.0-11.0) Red Blood Count 4.20 x10^6/uL (4.30-5.70) Hemoglobin 12.5 g/dL (13.0-17.5) Hematocrit 39.0 % (39.0-53.0) Mean Corpuscular Volume 93 fL (79-100) Mean Corpuscular Hemoglobin 30 pg (25-35) Mean Corpuscular Hemoglobin Concent 32 g/dL (31-37) Red Cell Distribution Width 16.8 % (11.5-14.5) Platelet Count 180 x10^3/uL (140-400) Sodium Level 140 mmol/L (136-145) Potassium Level 5.4 mmol/L (3.5-5.1) Chloride Level 105 mmol/L (98-107) Carbon Dioxide Level 27 mmol/L (21-32) Anion Gap 8 (6-14) Blood Urea Nitrogen 47 mg/dL (8-26) Creatinine 2.0 mg/dL (0.7-1.3) Estimated GFR (Cockcroft-Gault) 32.7 Glucose Level 212 mg/dL (70-99) Calcium Level 8.1 mg/dL (8.5-10.1) Glucose (Fingerstick) 197 mg/dL (70-99) 177 mg/dL (70-99) 196 mg/dL (70-99) Microbiology 07/30/16 Blood Culture - Preliminary, Resulted NO GROWTH AFTER 4 DAYS Medications Current Medications Dextrose (Dextrose 50%-Water Syringe) 25 gm 1X ONCE IV Last administered on 19:25; Start 07/30/16 at 19:30; Stop 07/30/16 at 19:31; Status DC Piperacillin Sod/ Tazobactam Sod 4.5 gm/Sodium Chloride 100 ml @ 200 mls/hr 1X ONCE IV Last administered on 07/30/16 19:40; Start 07/30/16 at 19:45; Stop 07/30/16 at 20:14; Status DC Vancomycin HCl 1.25 gm/Sodium Chloride 250 ml @ 166.667 mls/hr 1X ONCE IV ; Start 07/30/16 at 19:30; Stop 07/30/16 at 20:59; Status UNV Vancomycin HCl 2 gm/Sodium Chloride 500 ml @ 250 mls/hr 1X ONCE IV Last administered on 07/30/16 20:18; Start 07/30/16 at 19:45; Stop 07/30/16 at 21:44 ; Status DC Ondansetron HCl (Zofran) 4 mg PRN Q8HRS PRN IV NAUSEA/VOMITING; Start 07/30/16 at 21:00; Stop 07/31/16 at 20:59; Status DC Morphine Sulfate 2 mg PRN Q2HR PRN IV PAIN; Start 07/30/16 at 21:00; Stop 07/31 at 20:59; Status DC Enoxaparin Sodium (Lovenox 120mg Syringe) 120 mg 1X ONCE SQ Last administered on 07/30/16 22:48; Start 07/30/16 at 21:15; Stop 07/30/16 at 21:16; Status DC Furosemide (Lasix) 40 mg 1X ONCE IVP Last administered on 07/31/16 09:42; Start 07/31/16 at 08:45; Stop 07/31/16 at 08:46; Status DC Albuterol/ Ipratropium (Duoneb) 3 ml RTQID NEB Last administered on 08/04/16 08:03; Start 07/31/16 at 12:00 Ceftriaxone Sodium 1 gm/ Sodium Chloride 50 ml @ 100 mls/hr Q24H IV Last administered on 08/03/16 10:15; Start 07/31/16 at 10:00; Stop 08/03/16 at 15:38 ; Status DC Aspirin (Children'S Aspirin) 81 mg DAILY08 PO Last administered on 08/01/16 09 :04; Start 07/31/16 at 09:30; Stop 08/02/16 at 09:49; Status DC Lisinopril (Prinivil) 40 mg DAILY PO Last administered on 07/31/16 09:43; Start 07/31/16 at 09:00; Stop 07/31/16 at 14:14; Status DC Gabapentin (Neurontin) 300 mg QHS PO Last administered on 08/03/16 20:47; Start 07/31/16 at 21:00 Insulin Aspart (NovoLOG) 0-9 UNITS TIDWMEALS SQ Last administered on 08/04/16 08:04; Start 07/31/16 at 12:00 Dextrose (Dextrose 50%-Water Syringe) 12.5 gm PRN Q15MIN PRN IV SEE COMMENTS; Start 07/31/16 at 09:00 Enoxaparin Sodium (Lovenox 100mg Syringe) 100 mg DAILY10 SQ Last administered on 07/31/16 09:42; Start 07/31/16 at 10:00; Stop 07/31/16 at 11:08; Status DC Apixaban (Eliquis) 5 mg BID PO Last administered on 08/01/16 20:47; Start at 21:00; Stop 08/02/16 at 09:49; Status DC Info (Anti-Coagulation Monitoring By Pharmacy) 1 each PRN DAILY PRN MC SEE COMMENTS Last administered on 08/01/16 09:55; Start 07/31/16 at 12:30; Stop at 10:18; Status DC Lisinopril (Prinivil) 20 mg DAILY PO ; Start 08/01/16 at 09:00; Stop 08/01/16 at 09:00; Status DC Furosemide (Lasix) 20 mg 1X ONCE IVP Last administered on 07/31/16 15:13; Start 07/31/16 at 14:15; Stop 07/31/16 at 14:16; Status DC Metoprolol Tartrate (Lopressor) 12.5 mg BID PO Last administered on 08/02/16 12:43; Start 07/31/16 at 21:00; Stop 08/03/16 at 11:34; Status DC Lisinopril (Prinivil) 5 mg DAILY PO ; Start 08/02/16 at 09:00; Stop 08/02/16 at 09:49; Status DC Levothyroxine Sodium (Synthroid) 25 mcg DAILY07 PO Last administered on 07:58; Start 08/01/16 at 09:30 Furosemide (Lasix) 40 mg 1X ONCE IVP Last administered on 08/01/16 09:14; Start 08/01/16 at 09:15; Stop 08/01/16 at 09:16; Status DC Regadenoson (Lexiscan) 0.4 mg 1X ONCE IV Last administered on 08/02/16 09:28 ; Start 08/02/16 at 07:45; Stop 08/02/16 at 07:46; Status DC Sodium Polystyrene Sulfonate (Kayexalate) 15 gm 1X ONCE PO Last administered on 08/02/16 10:23; Start 08/02/16 at 10:00; Stop 08/02/16 at 10:01; Status DC Furosemide (Lasix) 40 mg DAILY IVP Last administered on 08/04/16 07:58; Start 08/02/16 at 10:30 Sodium Polystyrene Sulfonate (Kayexalate) 15 gm 1X ONCE PO Last administered on 08/02/16 17:03; Start 08/02/16 at 15:30; Stop 08/02/16 at 15:31; Status DC Amoxicillin/ Clavulanate Potassium (Augmentin 875/ 125mg) 1 tab BID PO Last administered on 08/04/16 07:58; Start 08/03/16 at 21:00 Aspirin (Children'S Aspirin) 81 mg DAILYWBKFT PO Last administered on t 07:58; Start 08/03/16 at 17:00 Active Scripts Active Reported Lantus Solostar (Insulin Glargine,Hum.rec.anlog) 100 Unit/1 Ml Insuln.pen 20 Unit SQ DAILYWSUP Lantus Solostar (Insulin Glargine,Hum.rec.anlog) 100 Unit/1 Ml Insuln.pen 25 Unit SQ DAILYWBKFT Gabapentin 300 Mg Capsule 300 Mg PO HS Furosemide 40 Mg Tablet 40 Mg PO DAILY Metformin Hcl 850 Mg Tablet 850 Mg PO BIDWMEALS Amlodipine Besylate 2.5 Mg Tablet 2.5 Mg PO DAILY Lisinopril 40 Mg Tablet 40 Mg PO DAILY Potassium Chloride 10 Meq Tablet.er 10 Meq PO BID Aspirin 81 Mg Tab.chew 1 Tab PO DAILY Vitals/I & O Vital Sign - Last 24 Hours 08/03/16 08/03/16 08/03/16 08/03/16 11:00 11:37 15:00 16:13 Temp 97.8 98.3 97.8 98.3 Pulse 49 60 Resp 17 18 B/P (MAP) 118/53 (74) 125/63 (83) Pulse Ox 98 97 96 O2 Delivery Nasal Cannula Nasal Cannula Nasal Cannula Nasal Cannula O2 Flow Rate 4.0 4.0 4.0 4.0 08/03/16 08/03/16 08/03/16 08/03/16 19:10 19:30 20:30 22:36 Temp 97.6 97.8 97.6 97.8 Pulse 64 61 Resp 18 20 B/P (MAP) 134/56 (82) 105/60 (75) Pulse Ox 98 95 97 O2 Delivery Nasal Cannula Nasal Cannula Nasal Cannula Nasal Cannula O2 Flow Rate 4.0 4.0 4.0 4.0 08/04/16 08/04/16 08/04/16 08/04/16 02:43 07:00 08:05 08:07 Temp 97.9 98.8 97.9 98.8 Pulse 64 69 Resp 20 22 B/P (MAP) 140/66 (90) 132/64 (86) Pulse Ox 95 98 95 O2 Delivery Nasal Cannula Nasal Cannula Nasal Cannula Nasal Cannula O2 Flow Rate 4.0 4.0 4.0 4.0 Intake and Output 08/03/16 08/03/16 08/04/16 14:59 22:59 06:59 Intake Total 750 ml 300 ml Output Total 950 ml Balance -200 ml 300 ml Problem List Problems Medical Problems: (1) Atrial fib/flutter, transient Status: Acute (2) Hyperkalemia Status: Acute (3) Hypoglycemia Status: Acute Assessment Blood in stool seems to have ceased, minor to begin with. Plan of Care: Continue current Tx, Mgmt Plan of Care Note Will stand by, observe for any bleeding. GHULAM ROSEN MD August 04, 2016 09:17
[2016-08-04 11:00] VITALS: BP 108/80
--- NOTE | 2016-08-04 11:55 | PDOC ---
PULMONARY PROGRESS NOTES Subjective NOT MORE SOA Vitals Vital Signs Date Time Temp Pulse Resp B/P (MAP) Pulse Ox O2 Delivery O2 Flow Rate FiO2 08/04/16 11:00 98.6 73 20 108/80 (89) 92 Nasal Cannula 4.0 98.6 ROS: No Nausea, No Chest Pain, No Abdominal Pain, No Increase Cough General: Alert Lungs: Clear Cardiovascular: S1, S2 Abdomen: Soft, Other (oese) Neuro Exam: Alert Extremities: Other (edema) Skin: Warm Labs Laboratory Tests Test 08/02/16 12:41 08/02/16 14:55 08/02/16 17:02 08/02/16 20:49 Glucose (Fingerstick) 201 mg/dL (70-99) 175 mg/dL (70-99) 193 mg/dL (70-99) White Blood Count 9.3 x10^3/uL (4.0-11.0) Red Blood Count 4.12 x10^6/uL (4.30-5.70) Hemoglobin 12.1 g/dL (13.0-17.5) Hematocrit 38.4 % (39.0-53.0) Mean Corpuscular Volume 93 fL (79-100) Mean Corpuscular Hemoglobin 29 pg (25-35) Mean Corpuscular Hemoglobin Concent 31 g/dL (31-37) Red Cell Distribution Width 17.2 % (11.5-14.5) Platelet Count 180 x10^3/uL (140-400) Sodium Level 142 mmol/L (136-145) Potassium Level 5.6 mmol/L (3.5-5.1) Chloride Level 107 mmol/L (98-107) Carbon Dioxide Level 25 mmol/L (21-32) Anion Gap 10 (6-14) Blood Urea Nitrogen 48 mg/dL (8-26) Creatinine 2.0 mg/dL (0.7-1.3) Estimated GFR (Cockcroft-Gault) 32.7 Glucose Level 176 mg/dL (70-99) Calcium Level 8.0 mg/dL (8.5-10.1) Magnesium Level 2.3 mg/dL (1.8-2.4) Test 08/03/16 07:40 08/03/16 09:35 08/03/16 12:22 08/03/16 17:31 Glucose (Fingerstick) 158 mg/dL (70-99) 197 mg/dL (70-99) 177 mg/dL (70-99) White Blood Count 8.2 x10^3/uL (4.0-11.0) Red Blood Count 4.20 x10^6/uL (4.30-5.70) Hemoglobin 12.5 g/dL (13.0-17.5) Hematocrit 39.0 % (39.0-53.0) Mean Corpuscular Volume 93 fL (79-100) Mean Corpuscular Hemoglobin 30 pg (25-35) Mean Corpuscular Hemoglobin Concent 32 g/dL (31-37) Red Cell Distribution Width 16.8 % (11.5-14.5) Platelet Count 180 x10^3/uL (140-400) Sodium Level 140 mmol/L (136-145) Potassium Level 5.4 mmol/L (3.5-5.1) Chloride Level 105 mmol/L (98-107) Carbon Dioxide Level 27 mmol/L (21-32) Anion Gap 8 (6-14) Blood Urea Nitrogen 47 mg/dL (8-26) Creatinine 2.0 mg/dL (0.7-1.3) Estimated GFR (Cockcroft-Gault) 32.7 Glucose Level 212 mg/dL (70-99) Calcium Level 8.1 mg/dL (8.5-10.1) Test 08/03/16 21:38 08/04/16 07:57 08/04/16 11:44 Glucose (Fingerstick) 196 mg/dL (70-99) 169 mg/dL (70-99) 205 mg/dL (70-99) Laboratory Tests Test 08/03/16 12:22 08/03/16 17:31 08/03/16 21:38 08/04/16 07:57 Glucose (Fingerstick) 197 mg/dL (70-99) 177 mg/dL (70-99) 196 mg/dL (70-99) 169 mg/dL (70-99) Test 08/04/16 11:44 Glucose (Fingerstick) 205 mg/dL (70-99) Medications Active Scripts Medications Dose Route/Sig Max Daily Dose Days Date Category Lantus Solostar (Insulin Glargine,Hum.rec.anlog) 100 Unit/1 Ml Insuln.pen 20 Unit SQ DAILYWSUP 07/30/16 Reported Lantus Solostar (Insulin Glargine,Hum.rec.anlog) 100 Unit/1 Ml Insuln.pen 25 Unit SQ DAILYWBKFT 07/30/16 Reported Gabapentin 300 Mg Capsule 300 Mg PO HS 07/30/16 Reported Furosemide 40 Mg Tablet 40 Mg PO DAILY 07/30/16 Reported Metformin Hcl 850 Mg Tablet 850 Mg PO BIDWMEALS 07/30/16 Reported Amlodipine Besylate 2.5 Mg Tablet 2.5 Mg PO DAILY 07/30/16 Reported Lisinopril 40 Mg Tablet 40 Mg PO DAILY 07/30/16 Reported Potassium Chloride 10 Meq Tablet.er 10 Meq PO BID 07/30/16 Reported Aspirin 81 Mg Tab.chew 1 Tab PO DAILY 12/09/13 Reported Impression . 1. Acute respiratory failure, multifactorial. 2. Acute heart failure. Suspect combination of diastolic and systolic. 3. Abnormal CT of the chest revealing multiple findings including a consolidation of right middle lobe with some air bronchograms, need to follow up with repeat CT in 4-6 weeks. 4. Morbid obesity. 5. Suspect acute on chronic renal failure. 6. Protein malnutrition present upon admission. 7. Elevated D-dimer, nonspecific. 8. Negative venous Dopplers of the lower extremities. 9. NSTEMI ABNORMAL STRESS TEST Plan . POSSIBLE D/C TO SNU WILL NEED OUPT SLEEP STUDY WILL CONTIUE THE SAME REPEAT CT IN 4-6 WEEKS ORAL ANTIBX FOLLOW UP WITH ME ONCE D/C FROM SNU PRERNA WU MD August 04, 2016 11:55
--- NOTE | 2016-08-04 12:09 | PDOC ---
Provider Note Provider Note vss, still af, rate ok- no change in exam- creat still 2 from baseline 1.4- will repeat in am- no more brb off eliquis, family understands why he is not on it now- snf 3 days- LUKE WATTS MD August 04, 2016 12:09
[2016-08-04] MEDS ORDERED: INSULIN DETEMIR 300 UNITS/3 ML INSULN.PEN. SQ SCH (13:00)
[2016-08-04 13:45] LABS: CALCIUM 8.4 mg/dL (8.5-10.1); CREATININE 1.9 mg/dL (0.7-1.3); GFR 34.7; MAGNESIUM 2.4 mg/dL (1.8-2.4); POTASSIUM 4.9 mmol/L (3.5-5.1)
[2016-08-04 15:13] VITALS: BP 93/45
[2016-08-04 19:31] VITALS: BP 124/50
[2016-08-04] MEDS: GABAPENTIN 300 MG CAPSULE. PO SCH (20:49)
[2016-08-04 23:01] VITALS: BP 151/61
[2016-08-05 02:52] VITALS: BP 139/69
[2016-08-05 07:00] VITALS: BP 121/63
[2016-08-05] MEDS: IPRATRPIUM/ALBUTEROL 0.5/2.5MG 3 ML NEBU. NEB SCH ×3 (07:32→17:14)
[2016-08-05] MEDS: LEVOTHYROXINE 25 MCG TABLET. PO SCH (07:51)
[2016-08-05] MEDS: AMOXICILLIN/K CLAV 875/125MG TABLET. PO SCH ×2 (07:51→20:45)
[2016-08-05] MEDS: ASPIRIN CHEWABLE 81 MG TABLET. PO SCH (07:51)
[2016-08-05] MEDS: FUROSEMIDE 40 MG/4 ML VIAL. IVP SCH (07:52)
--- NOTE | 2016-08-05 07:56 | PDOC ---
PULMONARY PROGRESS NOTES Subjective NOT MORE SOA Vitals Vital Signs Date Time Temp Pulse Resp B/P (MAP) Pulse Ox O2 Delivery O2 Flow Rate FiO2 08/05/16 07:34 97 Nasal Cannula 4.0 08/05/16 07:00 98.3 66 22 121/63 (82) 98.3 ROS: No Nausea, No Chest Pain, No Abdominal Pain, No Increase Cough General: Alert Lungs: Clear Cardiovascular: S1, S2 Abdomen: Soft, Other (oese) Neuro Exam: Alert Extremities: Other (edema) Skin: Warm Labs Laboratory Tests Test 08/03/16 09:35 08/03/16 12:22 08/03/16 17:00 08/03/16 17:31 White Blood Count 8.2 x10^3/uL (4.0-11.0) Red Blood Count 4.20 x10^6/uL (4.30-5.70) Hemoglobin 12.5 g/dL (13.0-17.5) Hematocrit 39.0 % (39.0-53.0) Mean Corpuscular Volume 93 fL (79-100) Mean Corpuscular Hemoglobin 30 pg (25-35) Mean Corpuscular Hemoglobin Concent 32 g/dL (31-37) Red Cell Distribution Width 16.8 % (11.5-14.5) Platelet Count 180 x10^3/uL (140-400) Sodium Level 140 mmol/L (136-145) Potassium Level 5.4 mmol/L (3.5-5.1) Chloride Level 105 mmol/L (98-107) Carbon Dioxide Level 27 mmol/L (21-32) Anion Gap 8 (6-14) Blood Urea Nitrogen 47 mg/dL (8-26) Creatinine 2.0 mg/dL (0.7-1.3) Estimated GFR (Cockcroft-Gault) 32.7 Glucose Level 212 mg/dL (70-99) Calcium Level 8.1 mg/dL (8.5-10.1) Glucose (Fingerstick) 197 mg/dL (70-99) 177 mg/dL (70-99) Clostridium difficile Toxin (PCR) Negative (Negative) Test 08/03/16 21:38 08/04/16 07:57 08/04/16 11:44 08/04/16 13:18 Glucose (Fingerstick) 196 mg/dL (70-99) 169 mg/dL (70-99) 205 mg/dL (70-99) Sodium Level 140 mmol/L (136-145) Potassium Level 4.9 mmol/L (3.5-5.1) Chloride Level 105 mmol/L (98-107) Carbon Dioxide Level 27 mmol/L (21-32) Anion Gap 8 (6-14) Blood Urea Nitrogen 46 mg/dL (8-26) Creatinine 1.9 mg/dL (0.7-1.3) Estimated GFR (Cockcroft-Gault) 34.7 Glucose Level 191 mg/dL (70-99) Calcium Level 8.4 mg/dL (8.5-10.1) Magnesium Level 2.4 mg/dL (1.8-2.4) Test 08/04/16 17:34 Glucose (Fingerstick) 151 mg/dL (70-99) Laboratory Tests Test 08/04/16 07:57 08/04/16 11:44 08/04/16 13:18 08/04/16 17:34 Glucose (Fingerstick) 169 mg/dL (70-99) 205 mg/dL (70-99) 151 mg/dL (70-99) Sodium Level 140 mmol/L (136-145) Potassium Level 4.9 mmol/L (3.5-5.1) Chloride Level 105 mmol/L (98-107) Carbon Dioxide Level 27 mmol/L (21-32) Anion Gap 8 (6-14) Blood Urea Nitrogen 46 mg/dL (8-26) Creatinine 1.9 mg/dL (0.7-1.3) Estimated GFR (Cockcroft-Gault) 34.7 Glucose Level 191 mg/dL (70-99) Calcium Level 8.4 mg/dL (8.5-10.1) Magnesium Level 2.4 mg/dL (1.8-2.4) Medications Active Scripts Medications Dose Route/Sig Max Daily Dose Days Date Category Lantus Solostar (Insulin Glargine,Hum.rec.anlog) 100 Unit/1 Ml Insuln.pen 20 Unit SQ DAILYWSUP 07/30/16 Reported Lantus Solostar (Insulin Glargine,Hum.rec.anlog) 100 Unit/1 Ml Insuln.pen 25 Unit SQ DAILYWBKFT 07/30/16 Reported Gabapentin 300 Mg Capsule 300 Mg PO HS 07/30/16 Reported Furosemide 40 Mg Tablet 40 Mg PO DAILY 07/30/16 Reported Metformin Hcl 850 Mg Tablet 850 Mg PO BIDWMEALS 07/30/16 Reported Amlodipine Besylate 2.5 Mg Tablet 2.5 Mg PO DAILY 07/30/16 Reported Lisinopril 40 Mg Tablet 40 Mg PO DAILY 07/30/16 Reported Potassium Chloride 10 Meq Tablet.er 10 Meq PO BID 07/30/16 Reported Aspirin 81 Mg Tab.chew 1 Tab PO DAILY 12/09/13 Reported Impression . 1. Acute respiratory failure, multifactorial. 2. Acute heart failure. Suspect combination of diastolic and systolic. 3. Abnormal CT of the chest revealing multiple findings including a consolidation of right middle lobe with some air bronchograms, need to follow up with repeat CT in 4-6 weeks. 4. Morbid obesity. 5. Suspect acute on chronic renal failure. 6. Protein malnutrition present upon admission. 7. Elevated D-dimer, nonspecific. 8. Negative venous Dopplers of the lower extremities. 9. NSTEMI ABNORMAL STRESS TEST Plan . RESP STATUS IS COMPENSATED POSSIBLE D/C TO SNU PER PCP WILL NEED OUPT SLEEP STUDY WILL CONTIUE THE SAME REPEAT CT IN 4-6 WEEKS ORAL ANTIBX FOLLOW UP WITH ME ONCE D[facility] MD August 05, 2016 07:56
[2016-08-05] MEDS: INSULIN ASPART 300 UNITS/3 ML INSULN.PEN SQ SCH ×3 (08:01→17:22)
[2016-08-05 11:14] VITALS: BP 139/56
--- NOTE | 2016-08-05 11:14 | PDOC ---
Provider Note Provider Note still 2 + pretib edema, vss, will try po higher lasix, resume low dose metop as he did not tolerate acei- creat 1.9, will follow w/ more lasix- cxr slowly better LUKE WATTS MD August 05, 2016 11:14
[2016-08-05] MEDS: METOPROLOL TART IMMED RELEASE 25 MG TABLET. PO SCH ×2 (11:30→20:46)
[2016-08-05 15:19] VITALS: BP 101/51
[2016-08-05] MEDS: FUROSEMIDE 20 MG TABLET PO SCH (17:18)
[2016-08-05 19:00] VITALS: BP 111/53
[2016-08-05] MEDS: GABAPENTIN 300 MG CAPSULE. PO SCH (20:46)
[2016-08-05 22:44] VITALS: BP 139/86
[2016-08-06 03:00] VITALS: BP 134/61
[2016-08-06 04:47] LABS: CALCIUM 8.6 mg/dL (8.5-10.1); CREATININE 1.8 mg/dL (0.7-1.3); POTASSIUM 4.9 mmol/L (3.5-5.1)
[2016-08-06] MEDS: LEVOTHYROXINE 25 MCG TABLET. PO SCH (06:28)
[2016-08-06] MEDS: FUROSEMIDE 20 MG TABLET PO SCH (06:29)
[2016-08-06] MEDS: IPRATRPIUM/ALBUTEROL 0.5/2.5MG 3 ML NEBU. NEB SCH ×2 (07:16→12:30)
[2016-08-06 07:45] VITALS: BP 124/74
[2016-08-06] MEDS: INSULIN ASPART 300 UNITS/3 ML INSULN.PEN SQ SCH ×3 (08:00→17:21)
[2016-08-06] MEDS: AMOXICILLIN/K CLAV 875/125MG TABLET. PO SCH (08:07)
[2016-08-06] MEDS: ASPIRIN CHEWABLE 81 MG TABLET. PO SCH (08:07)
[2016-08-06] MEDS: METOPROLOL TART IMMED RELEASE 25 MG TABLET. PO SCH ×2 (08:07→20:38)
[2016-08-06] MEDS ORDERED: INSULIN DETEMIR 300 UNITS/3 ML INSULN.PEN. SQ SCH (10:00)
[2016-08-06 10:49] VITALS: BP 95/53
--- NOTE | 2016-08-06 10:55 | PDOC ---
PULMONARY PROGRESS NOTES Subjective NOT MORE SOA Vitals Vital Signs Date Time Temp Pulse Resp B/P (MAP) Pulse Ox O2 Delivery O2 Flow Rate FiO2 08/06/16 10:49 98.3 54 20 95/53 (67) 93 Nasal Cannula 4.0 98.3 ROS: No Nausea, No Chest Pain, No Abdominal Pain, No Increase Cough General: Alert Lungs: Clear Cardiovascular: S1, S2 Abdomen: Soft, Other (oese) Neuro Exam: Alert Extremities: Other (edema) Skin: Warm Labs Laboratory Tests Test 08/04/16 11:44 08/04/16 13:18 08/04/16 17:34 08/05/16 07:49 Glucose (Fingerstick) 205 mg/dL (70-99) 151 mg/dL (70-99) 153 mg/dL (70-99) Sodium Level 140 mmol/L (136-145) Potassium Level 4.9 mmol/L (3.5-5.1) Chloride Level 105 mmol/L (98-107) Carbon Dioxide Level 27 mmol/L (21-32) Anion Gap 8 (6-14) Blood Urea Nitrogen 46 mg/dL (8-26) Creatinine 1.9 mg/dL (0.7-1.3) Estimated GFR (Cockcroft-Gault) 34.7 Glucose Level 191 mg/dL (70-99) Calcium Level 8.4 mg/dL (8.5-10.1) Magnesium Level 2.4 mg/dL (1.8-2.4) Test 08/05/16 11:17 08/05/16 17:18 08/05/16 20:45 08/06/16 03:20 Glucose (Fingerstick) 164 mg/dL (70-99) 169 mg/dL (70-99) 171 mg/dL (70-99) Sodium Level 139 mmol/L (136-145) Potassium Level 4.9 mmol/L (3.5-5.1) Chloride Level 104 mmol/L (98-107) Carbon Dioxide Level 29 mmol/L (21-32) Anion Gap 6 (6-14) Blood Urea Nitrogen 51 mg/dL (8-26) Creatinine 1.8 mg/dL (0.7-1.3) Estimated GFR (Cockcroft-Gault) 37.0 Glucose Level 168 mg/dL (70-99) Calcium Level 8.6 mg/dL (8.5-10.1) Test 08/06/16 08:06 Glucose (Fingerstick) 149 mg/dL (70-99) Laboratory Tests Test 08/05/16 11:17 08/05/16 17:18 08/05/16 20:45 08/06/16 03:20 Glucose (Fingerstick) 164 mg/dL (70-99) 169 mg/dL (70-99) 171 mg/dL (70-99) Sodium Level 139 mmol/L (136-145) Potassium Level 4.9 mmol/L (3.5-5.1) Chloride Level 104 mmol/L (98-107) Carbon Dioxide Level 29 mmol/L (21-32) Anion Gap 6 (6-14) Blood Urea Nitrogen 51 mg/dL (8-26) Creatinine 1.8 mg/dL (0.7-1.3) Estimated GFR (Cockcroft-Gault) 37.0 Glucose Level 168 mg/dL (70-99) Calcium Level 8.6 mg/dL (8.5-10.1) Test 08/06/16 08:06 Glucose (Fingerstick) 149 mg/dL (70-99) Medications Active Scripts Medications Dose Route/Sig Max Daily Dose Days Date Category Lantus Solostar (Insulin Glargine,Hum.rec.anlog) 100 Unit/1 Ml Insuln.pen 20 Unit SQ DAILYWSUP 07/30/16 Reported Lantus Solostar (Insulin Glargine,Hum.rec.anlog) 100 Unit/1 Ml Insuln.pen 25 Unit SQ DAILYWBKFT 07/30/16 Reported Gabapentin 300 Mg Capsule 300 Mg PO HS 07/30/16 Reported Furosemide 40 Mg Tablet 40 Mg PO DAILY 07/30/16 Reported Metformin Hcl 850 Mg Tablet 850 Mg PO BIDWMEALS 07/30/16 Reported Amlodipine Besylate 2.5 Mg Tablet 2.5 Mg PO DAILY 07/30/16 Reported Lisinopril 40 Mg Tablet 40 Mg PO DAILY 07/30/16 Reported Potassium Chloride 10 Meq Tablet.er 10 Meq PO BID 07/30/16 Reported Aspirin 81 Mg Tab.chew 1 Tab PO DAILY 12/09/13 Reported Impression . 1. Acute respiratory failure, multifactorial. 2. Acute heart failure. Suspect combination of diastolic and systolic. 3. Abnormal CT of the chest revealing multiple findings including a consolidation of right middle lobe with some air bronchograms, need to follow up with repeat CT in 4-6 weeks. 4. Morbid obesity. 5. Suspect acute on chronic renal failure. 6. Protein malnutrition present upon admission. 7. Elevated D-dimer, nonspecific. 8. Negative venous Dopplers of the lower extremities. 9. NSTEMI ABNORMAL STRESS TEST Plan . RESP STATUS IS COMPENSATED POSSIBLE D/C TO SNU PER PCP WILL NEED OUPT SLEEP STUDY WILL CONTIUE THE SAME REPEAT CT IN 4-6 WEEKS ORAL ANTIBX FOLLOW UP WITH ME ONCE D/C FROM SNU PRERNA WU MD August 06, 2016 10:55
--- NOTE | 2016-08-06 14:21 | PDOC ---
Provider Note Provider Note VSS, BP A LITTLE L OW, will reduce metop dose- bun up so reduce lasix to 3/ week - d/w family , rehab in , [facility] LUKE WATTS MD August 06, 2016 14:21
[2016-08-06 14:47] VITALS: BP 133/64
[2016-08-06 19:10] VITALS: BP 117/56
[2016-08-06] MEDS: GABAPENTIN 300 MG CAPSULE. PO SCH (20:38)
[2016-08-06 23:10] VITALS: BP 121/61
[2016-08-07 03:10] VITALS: BP 109/53
[2016-08-07] MEDS: LEVOTHYROXINE 25 MCG TABLET. PO SCH (06:24)
[2016-08-07 07:35] VITALS: BP 134/63
[2016-08-07 07:56] LABS: HCO3 ABG 22 mmol/L (21-28); PCO2 ABG 56 mmHg (35-46); PH ABG 7.22 (7.35-7.45); PO2 ABG 60 mmHg (65-108); SAT O2 ABG 89 % (92-99)
[2016-08-07] MEDS: ASPIRIN CHEWABLE 81 MG TABLET. PO SCH (08:00)
--- NOTE | 2016-08-07 08:20 | DISCH ---
DISCHARGE FINAL DIAGNOSIS Problems Medical Problems: (1) Atrial fib/flutter, transient Status: Acute (2) Hyperkalemia Status: Acute (3) Hypoglycemia Status: Acute CONDITION ON DISCHARGE: Stable SNF STAY <30 DAYS: Yes POST DISCHARGE ORDERS ACTIVITY ORDERS: Activity as tolerated DIET AFTER DISCHARGE: ADA FOLLOW-UP PHYSICIAN FOLLOW-UP: after out LUKE WATTS MD August 07, 2016 08:20
--- NOTE | 2016-08-07 08:34 | PDOC ---
Provider Note Provider Note was found unresponsive this am- apneic- has come around w/ bipap- has taken no sedatives, hypoglycemia, opioids, but likely has sandor- now awake on bipap, moves all extrems, no focal signs- last week he told me he wants to be a full code as he is now- cancel dc, follow w/ abg, meds same LUKE WATTS MD August 07, 2016 08:34
[2016-08-07] MEDS: INSULIN ASPART 300 UNITS/3 ML INSULN.PEN SQ SCH ×3 (08:38→17:03)
[2016-08-07] MEDS: METOPROLOL TART IMMED RELEASE 25 MG TABLET. PO SCH ×2 (09:00→21:07)
[2016-08-07] MEDS: FUROSEMIDE 40 MG TABLET. PO SCH (09:00)
[2016-08-07 09:10] LABS: FIO2 ABG 35%
--- NOTE | 2016-08-07 09:27 | PDOC ---
PULMONARY PROGRESS NOTES Subjective Pt was found less responsive today on BIPAP, opens eyes to commands Vitals Vital Signs Date Time Temp Pulse Resp B/P (MAP) Pulse Ox O2 Delivery O2 Flow Rate FiO2 08/07/16 08:00 Bi-pap 08/07/16 07:35 98.1 51 20 134/63 (86) 98 98.1 08/07/16 03:10 3.0 General: Lethargic Lungs: Other (decrease bs) Cardiovascular: S1 Abdomen: Soft, Other (oese) Extremities: Other (edema) Skin: Warm Labs Laboratory Tests Test 08/05/16 11:17 08/05/16 17:18 08/05/16 20:45 08/06/16 03:20 Glucose (Fingerstick) 164 mg/dL (70-99) 169 mg/dL (70-99) 171 mg/dL (70-99) Sodium Level 139 mmol/L (136-145) Potassium Level 4.9 mmol/L (3.5-5.1) Chloride Level 104 mmol/L (98-107) Carbon Dioxide Level 29 mmol/L (21-32) Anion Gap 6 (6-14) Blood Urea Nitrogen 51 mg/dL (8-26) Creatinine 1.8 mg/dL (0.7-1.3) Estimated GFR (Cockcroft-Gault) 37.0 Glucose Level 168 mg/dL (70-99) Calcium Level 8.6 mg/dL (8.5-10.1) Test 08/06/16 08:06 08/06/16 11:55 08/06/16 16:35 08/06/16 21:25 Glucose (Fingerstick) 149 mg/dL (70-99) 140 mg/dL (70-99) 194 mg/dL (70-99) 262 mg/dL (70-99) Test 08/07/16 07:30 08/07/16 07:41 Glucose (Fingerstick) 213 mg/dL (70-99) O2 Saturation 89 % (92-99) Arterial Blood pH 7.22 (7.35-7.45) Arterial Blood pCO2 at Patient Temp 56 mmHg (35-46) Arterial Blood pO2 at Patient Temp 60 mmHg (65-108) Arterial Blood HCO3 22 mmol/L (21-28) Arterial Blood Base Excess -6 mmol/L (-3-3) FiO2 35% Laboratory Tests Test 08/06/16 11:55 08/06/16 16:35 08/06/16 21:25 08/07/16 07:30 Glucose (Fingerstick) 140 mg/dL (70-99) 194 mg/dL (70-99) 262 mg/dL (70-99) 213 mg/dL (70-99) Test 08/07/16 07:41 O2 Saturation 89 % (92-99) Arterial Blood pH 7.22 (7.35-7.45) Arterial Blood pCO2 at Patient Temp 56 mmHg (35-46) Arterial Blood pO2 at Patient Temp 60 mmHg (65-108) Arterial Blood HCO3 22 mmol/L (21-28) Arterial Blood Base Excess -6 mmol/L (-3-3) FiO2 35% Medications Active Scripts Medications Dose Route/Sig Max Daily Dose Days Date Category Lantus Solostar (Insulin Glargine,Hum.rec.anlog) 100 Unit/1 Ml Insuln.pen 20 Unit SQ DAILYWSUP 07/30/16 Reported Lantus Solostar (Insulin Glargine,Hum.rec.anlog) 100 Unit/1 Ml Insuln.pen 25 Unit SQ DAILYWBKFT 07/30/16 Reported Gabapentin 300 Mg Capsule 300 Mg PO HS 07/30/16 Reported Furosemide 40 Mg Tablet 40 Mg PO DAILY 07/30/16 Reported Metformin Hcl 850 Mg Tablet 850 Mg PO BIDWMEALS 07/30/16 Reported Amlodipine Besylate 2.5 Mg Tablet 2.5 Mg PO DAILY 07/30/16 Reported Lisinopril 40 Mg Tablet 40 Mg PO DAILY 07/30/16 Reported Potassium Chloride 10 Meq Tablet.er 10 Meq PO BID 07/30/16 Reported Aspirin 81 Mg Tab.chew 1 Tab PO DAILY 12/09/13 Reported Impression . 1. Acute hypercapnic respiratory failure, not on narcotics. was off oxygen this am. ABG with hypercapnia, low PH and possible relative met acidosis 2. Acute heart failure. Suspect combination of diastolic and systolic. 3. Abnormal CT of the chest revealing multiple findings including a consolidation of right middle lobe with some air bronchograms, need to follow up with repeat CT in 4-6 weeks. 4. Morbid obesity. 5. Suspect acute on chronic renal failure. 6. Protein malnutrition present upon admission. 7. Elevated D-dimer, nonspecific. 8. Negative venous Dopplers of the lower extremities. 9. NSTEMI ABNORMAL STRESS TEST Plan . BIPAP/ LONG HE CAN TOLERATE REPEAT ABG IN 2 HRS HOLD D/C TO SNU WILL NEED OUTPT SLEEP STUDY BS ANTIBIOTICS/ IV REPEAT CT IN 4-6 WEEKS FOLLOW UP WITH DR WU ONCE D/C FROM SNU D/W RN ADDEND: Long discussion with the daughter. Explained that he has multi- factorial etiology of RF. Its challenging to keep a balance in stabilizing heart , lungs and kidneys and further challenging with him not tolerating BIPAP. we will continue aggressive medical care while they discuss advance directives with his . full code for now MIK SALAS MD August 07, 2016 09:27
[2016-08-07] MEDS: INSULIN DETEMIR 300 UNITS/3 ML INSULN.PEN. SQ SCH (10:00)
[2016-08-07 10:43] LABS: HCO3 ABG 28 mmol/L (21-28); PH ABG 7.26 (7.35-7.45); PO2 ABG 73 mmHg (65-108); SAT O2 ABG 93 % (92-99)
--- NOTE | 2016-08-07 10:44 | PDOC ---
Objective: Objective: Reviewed notes, d/w RN - unresponsives this morning, now better on BiPAP. No GI or bleeding concerns. Vital Signs: Vital Signs Date Time Temp Pulse Resp B/P (MAP) Pulse Ox O2 Delivery O2 Flow Rate FiO2 08/07/16 08:00 96 BiPAP/CPAP 08/07/16 07:35 98.1 51 20 134/63 (86) 98.1 08/07/16 03:10 3.0 Labs: Laboratory Tests Test 08/06/16 11:55 08/06/16 16:35 08/06/16 21:25 08/07/16 07:30 Glucose (Fingerstick) 140 mg/dL 194 mg/dL 262 mg/dL 213 mg/dL Test 08/07/16 07:41 O2 Saturation 89 % Arterial Blood pH 7.22 Arterial Blood pCO2 at Patient Temp 56 mmHg Arterial Blood pO2 at Patient Temp 60 mmHg Arterial Blood HCO3 22 mmol/L Arterial Blood Base Excess -6 mmol/L FiO2 35% PE: GEN: BiPAP LUNGS: decreased HEART: bradycardic ABD: obese, non-tender NEURO/PSYCH: awake, difficulty communicating w/ BiPAP A/P: Resp failure, currently on BiPAP A Fib, NSTEMI, CHF -currently on ASA per cardiology Blood in stool - no recurrence -Hgb stable (last check 08/03) H/o colon cancer s/p resection and chemo -- Anticoagulation okay per GI. HUNG PETERS August 07, 2016 10:44
[2016-08-07 10:56] LABS: FIO2 ABG 40; PCO2 ABG 64 mmHg (35-46)
[2016-08-07 11:31] VITALS: BP 104/55
--- NOTE | 2016-08-07 11:54 | PDOC ---
ELBA MARTINEZ REFRIGERATION MANAGER 08/07/16 1154: CARDIO Progress Notes Date and Time Date of Service 08/07/2016 Time of Evaluation 1148 Subjective Subjective: Other (hypoxic earlier today and back on bi-pap) Vitals Vitals Vital Signs Date Time Temp Pulse Resp B/P (MAP) Pulse Ox O2 Delivery O2 Flow Rate FiO2 08/07/16 11:31 98.0 47 27 104/55 (71) 93 BiPAP/CPAP 98.0 08/07/16 03:10 3.0 Weight Weight [ ] Input and Output Intake and Output Intake and Output 08/07/16 06:59 Output Total 700 ml Balance -700 ml Output Urine Total 700 ml # Voids 2 # Bowel Movements 1 Laboratory Labs Laboratory Tests Test 08/06/16 11:55 08/06/16 16:35 08/06/16 21:25 08/07/16 07:30 Glucose (Fingerstick) 140 mg/dL (70-99) 194 mg/dL (70-99) 262 mg/dL (70-99) 213 mg/dL (70-99) Test 08/07/16 07:41 08/07/16 10:30 08/07/16 11:37 O2 Saturation 89 % (92-99) 93 % (92-99) Arterial Blood pH 7.22 (7.35-7.45) 7.26 (7.35-7.45) Arterial Blood pCO2 at Patient Temp 56 mmHg (35-46) 64 mmHg (35-46) Arterial Blood pO2 at Patient Temp 60 mmHg (65-108) 73 mmHg (65-108) Arterial Blood HCO3 22 mmol/L (21-28) 28 mmol/L (21-28) Arterial Blood Base Excess -6 mmol/L (-3-3) 0 mmol/L (-3-3) FiO2 35% 40 Glucose (Fingerstick) 163 mg/dL (70-99) Microbiology Micro Microbiology 07/30/16 Blood Culture - Final, Complete NO GROWTH AFTER 5 DAYS Physical Exam HEENT: Neck Supple W Full Motion Chest: Symmetric LUNGS: Other (diminished anteriorly) Heart: irregularly irregular, other (tele: atrial fib ) Abdomen: Soft N/T (truncal obesity) Extremities: No Calf Tenderness, Other (dressing on right calf; stasis changes- - 2+ bilateral LE pitting edema) Neurology: other (sleeping) Diagnostic Tests Echocardiogram: Other (LVEF 3540%; moderate global hypokinesis; moderate diastolic dysfunction; RV dilatation; septal wall motion abnormality suggestive of conduction abnormality) Assessment Assessment 1. Atrial fibrillation/aflutter, new onset [id number] = 5 with OAC recommendation previous tx with ASA and Eliquis subsequently d/c due to melena GI notes indicate agreeable with attempt to treat with ASA for stroke prevention event monitor at discharge to evaluate atrial fib burden/SSS - though likely will need SNF care, precluding the use of event monitor 2. Acute CHF, systolic and diastolic LV function depressed @ 35-40% continue diuretics started on BB - watch for bradycardia 4. NSTEMI Regadenoson MPI abnormal - large,mostly fixed distal inferior, inferolateral defect; mild jey-infarct reversibility; LVEF 45% continue aspirin clinic follow up to determine future candidacy for cath vs med mgmt 5. COPD/acute respiratory failure hypoxic this a.m. and back on bi-pap 6. morbid obesity Agreeable with discharge to SNF when planned by other services follow up as scheduled Will follow peripherally Would benefit from SNF at discharge - SS consulted ? 's ability to physically care for patient SHAHRIAR FIGUEREDO MD 08/09/16 2325: CARDIO Progress Notes Plan Plan Late entry for 08/07/2016 Pt. seen and examined. Agree with above TALENT RECRUITER note. Patient struggling to keep bipap on. Exam with significant lower ext edema. Labs noted. Discussed with Dr. Silva about stress findings. Low yield of cath and explained risks/benefits to family and patient. They were all in agreement that conservative therapy would be best. Will be available for any further questions. Thanks for consult. ELBA MARTINEZ APRN August 07, 2016 11:54 SHAHRIAR FIGUEREDO MD Aug 09, 2016 23:25
[2016-08-07 13:50] LABS: HCO3 ABG 27 mmol/L (21-28); PH ABG 7.27 (7.35-7.45); PO2 ABG 64 mmHg (65-108); SAT O2 ABG 91 % (92-99)
[2016-08-07 13:51] LABS: FIO2 ABG 35; PCO2 ABG 60 mmHg (35-46)
[2016-08-07 14:45] VITALS: BP 120/59
[2016-08-07] MEDS ORDERED: SODIUM BICARB ADULT 8.4% 50 MEQ/50 ML DISP.SYRIN. IV ONE (15:15)
[2016-08-07 18:17] LABS: HCO3 ABG 28 mmol/L (21-28); PCO2 ABG 56 mmHg (35-46); PH ABG 7.31 (7.35-7.45); PO2 ABG 74 mmHg (65-108); SAT O2 ABG 94 % (92-99)
[2016-08-07 18:19] LABS: FIO2 ABG 35
[2016-08-07] MEDS ORDERED: VANCOMYCIN 2 GM in IV NORMAL SALINE 500ML BAG 500 ML IV ONE (19:00)
[2016-08-07] MEDS ORDERED: PIP/TAZO PER PHARMACY MC PRN (19:00)
[2016-08-07 19:54] VITALS: BP 109/42
[2016-08-07] MEDS: VANCOMYCIN PER PHARMACY MC PRN (20:30)
[2016-08-07] MEDS: FAMOTIDINE 20 MG TABLET. PO SCH (21:07)
[2016-08-07] MEDS: PIPERACILLIN/TAZOBACTAM 4.5 GM in IV NORMAL SALINE 100ML 100 ML IV SCH (21:07)
[2016-08-07] MEDS: GABAPENTIN 300 MG CAPSULE. PO SCH (21:07)
[2016-08-07 23:01] VITALS: BP 130/44
[2016-08-08] MEDS: PIPERACILLIN/TAZOBACTAM 4.5 GM in IV NORMAL SALINE 100ML 100 ML IV SCH ×4 (01:30→19:08)
[2016-08-08 02:15] VITALS: BP 115/61
[2016-08-08] MEDS: LEVOTHYROXINE 25 MCG TABLET. PO SCH (06:38)
[2016-08-08 07:00] VITALS: BP 119/53
[2016-08-08 07:05] LABS: CALCIUM 8.4 mg/dL (8.5-10.1); CREATININE 1.8 mg/dL (0.7-1.3)
[2016-08-08] MEDS: INSULIN ASPART 300 UNITS/3 ML INSULN.PEN SQ SCH ×3 (08:00→17:00)
[2016-08-08] MEDS: FUROSEMIDE 40 MG TABLET. PO SCH (08:46)
[2016-08-08] MEDS: METOPROLOL TART IMMED RELEASE 25 MG TABLET. PO SCH ×2 (08:46→21:00)
[2016-08-08] MEDS: ASPIRIN CHEWABLE 81 MG TABLET. PO SCH (08:46)
[2016-08-08] MEDS: INSULIN DETEMIR 300 UNITS/3 ML INSULN.PEN. SQ SCH (08:52)
--- NOTE | 2016-08-08 08:57 | PDOC ---
Provider Note Provider Note d/w re need to consider dnr as his outcome is poor and chance of benefit from cath is very low- he is not tolerating supine position at present- she will discuss w/ family re her dnr decison but agrees to dnr at present as this is in his best interset LUKE WATTS MD August 08, 2016 08:57
[2016-08-08] MEDS: VANCOMYCIN PER PHARMACY MC PRN (09:12)
[2016-08-08 11:09] VITALS: BP 115/56
--- NOTE | 2016-08-08 11:16 | PDOC ---
Objective: Objective: D/w RN - on and off BiPAP, now w/ venturi mask, keeps taking it off. Made DNR, family discussing options. No GI concerns. BM yesterday, no reports of bleeding. Vital Signs: Vital Signs Date Time Temp Pulse Resp B/P (MAP) Pulse Ox O2 Delivery O2 Flow Rate FiO2 08/08/16 11:09 97.4 48 16 115/56 (75) 92 Venturi Mask 97.4 08/08/16 08:00 9.0 Labs: Laboratory Tests Test 08/07/16 11:37 08/07/16 16:32 08/07/16 20:32 08/08/16 08:01 Glucose (Fingerstick) 163 mg/dL (70-99) 176 mg/dL (70-99) 188 mg/dL (70-99) 185 mg/dL (70-99) PE: GEN: NAD LUNGS: decreased, venturi mask HEART: bradycardic ABD: obese, non-tender NEURO/PSYCH: asleep, did not awaken during exam A/P: Resp failure, A Fib, NSTEMI, CHF Blood in stool - no recurrence -Hgb stable (last check 08/03) -h/o colon cancer s/p resection and chemo -okay for anticoagulation per GI -- Await family decisions. HUNG PETERS August 08, 2016 11:16
--- NOTE | 2016-08-08 11:35 | PDOC ---
PULMONARY PROGRESS NOTES Subjective used BIPAP last night, opens eyes to commands Vitals Vital Signs Date Time Temp Pulse Resp B/P (MAP) Pulse Ox O2 Delivery O2 Flow Rate FiO2 08/08/16 11:09 97.4 48 16 115/56 (75) 92 Venturi Mask 97.4 08/08/16 08:00 9.0 General: Lethargic Lungs: Other (decrease bs) Cardiovascular: S1 Abdomen: Soft, Other (oese) Extremities: Other (edema) Skin: Warm Labs Laboratory Tests Test 08/06/16 11:55 08/06/16 16:35 08/06/16 21:25 08/07/16 07:30 Glucose (Fingerstick) 140 mg/dL (70-99) 194 mg/dL (70-99) 262 mg/dL (70-99) 213 mg/dL (70-99) Test 08/07/16 07:41 08/07/16 10:30 08/07/16 11:37 08/07/16 13:00 O2 Saturation 89 % (92-99) 93 % (92-99) 91 % (92-99) Arterial Blood pH 7.22 (7.35-7.45) 7.26 (7.35-7.45) 7.27 (7.35-7.45) Arterial Blood pCO2 at Patient Temp 56 mmHg (35-46) 64 mmHg (35-46) 60 mmHg (35-46) Arterial Blood pO2 at Patient Temp 60 mmHg (65-108) 73 mmHg (65-108) 64 mmHg (65-108) Arterial Blood HCO3 22 mmol/L (21-28) 28 mmol/L (21-28) 27 mmol/L (21-28) Arterial Blood Base Excess -6 mmol/L (-3-3) 0 mmol/L (-3-3) -1 mmol/L (-3-3) FiO2 35% 40 35 Glucose (Fingerstick) 163 mg/dL (70-99) Test 08/07/16 16:32 08/07/16 17:10 08/07/16 20:32 08/08/16 06:00 Glucose (Fingerstick) 176 mg/dL (70-99) 188 mg/dL (70-99) O2 Saturation 94 % (92-99) Arterial Blood pH 7.31 (7.35-7.45) Arterial Blood pCO2 at Patient Temp 56 mmHg (35-46) Arterial Blood pO2 at Patient Temp 74 mmHg (65-108) Arterial Blood HCO3 28 mmol/L (21-28) Arterial Blood Base Excess 0 mmol/L (-3-3) FiO2 35 Sodium Level 139 mmol/L (136-145) Potassium Level 5.0 mmol/L (3.5-5.1) Chloride Level 103 mmol/L (98-107) Carbon Dioxide Level 27 mmol/L (21-32) Anion Gap 9 (6-14) Blood Urea Nitrogen 62 mg/dL (8-26) Creatinine 1.8 mg/dL (0.7-1.3) Estimated GFR (Cockcroft-Gault) 37.0 Glucose Level 184 mg/dL (70-99) Calcium Level 8.4 mg/dL (8.5-10.1) Test 08/08/16 08:01 Glucose (Fingerstick) 185 mg/dL (70-99) Laboratory Tests Test 08/07/16 11:37 08/07/16 13:00 08/07/16 16:32 08/07/16 17:10 Glucose (Fingerstick) 163 mg/dL (70-99) 176 mg/dL (70-99) O2 Saturation 91 % (92-99) 94 % (92-99) Arterial Blood pH 7.27 (7.35-7.45) 7.31 (7.35-7.45) Arterial Blood pCO2 at Patient Temp 60 mmHg (35-46) 56 mmHg (35-46) Arterial Blood pO2 at Patient Temp 64 mmHg (65-108) 74 mmHg (65-108) Arterial Blood HCO3 27 mmol/L (21-28) 28 mmol/L (21-28) Arterial Blood Base Excess -1 mmol/L (-3-3) 0 mmol/L (-3-3) FiO2 35 35 Test 08/07/16 20:32 08/08/16 06:00 08/08/16 08:01 Glucose (Fingerstick) 188 mg/dL (70-99) 185 mg/dL (70-99) Sodium Level 139 mmol/L (136-145) Potassium Level 5.0 mmol/L (3.5-5.1) Chloride Level 103 mmol/L (98-107) Carbon Dioxide Level 27 mmol/L (21-32) Anion Gap 9 (6-14) Blood Urea Nitrogen 62 mg/dL (8-26) Creatinine 1.8 mg/dL (0.7-1.3) Estimated GFR (Cockcroft-Gault) 37.0 Glucose Level 184 mg/dL (70-99) Calcium Level 8.4 mg/dL (8.5-10.1) Medications Active Scripts Medications Dose Route/Sig Max Daily Dose Days Date Category Lantus Solostar (Insulin Glargine,Hum.rec.anlog) 100 Unit/1 Ml Insuln.pen 20 Unit SQ DAILYWSUP 07/30/16 Reported Lantus Solostar (Insulin Glargine,Hum.rec.anlog) 100 Unit/1 Ml Insuln.pen 25 Unit SQ DAILYWBKFT 07/30/16 Reported Gabapentin 300 Mg Capsule 300 Mg PO HS 07/30/16 Reported Furosemide 40 Mg Tablet 40 Mg PO DAILY 07/30/16 Reported Metformin Hcl 850 Mg Tablet 850 Mg PO BIDWMEALS 07/30/16 Reported Amlodipine Besylate 2.5 Mg Tablet 2.5 Mg PO DAILY 07/30/16 Reported Lisinopril 40 Mg Tablet 40 Mg PO DAILY 07/30/16 Reported Potassium Chloride 10 Meq Tablet.er 10 Meq PO BID 07/30/16 Reported Aspirin 81 Mg Tab.chew 1 Tab PO DAILY 12/09/13 Reported Impression . 1. Acute hypercapnic respiratory failure/ multifactorial . ABG improved with BIPAP 2. Acute heart failure. Suspect combination of diastolic and systolic. 3. Abnormal CT of the chest revealing multiple findings including a consolidation of right middle lobe with some air bronchograms, need to follow up with repeat CT in 4-6 weeks. 4. Morbid obesity. 5. Suspect acute on chronic renal failure. 6. Protein malnutrition present upon admission. 7. Elevated D-dimer, nonspecific. 8. Negative venous Dopplers of the lower extremities. 9. NSTEMI ABNORMAL STRESS TEST Plan . BIPAP QHS LONG HE CAN TOLERATE REPEAT ABG improved VM DURING DAY HOLD D/C TO U WILL NEED OUTPT SLEEP STUDY BS ANTIBIOTICS/ IV REPEAT CT IN 4-6 WEEKS FOLLOW UP WITH DR WU ONCE D/C FROM U D/W RN ADDEND: Long discussion with the daughter 08/07. Explained that he has multi- factorial etiology of RF. Its challenging to keep a balance in stabilizing heart , lungs and kidneys and further challenging with him not tolerating BIPAP. we will continue aggressive medical care . DNR NOW MIK SALAS MD August 08, 2016 11:35
[2016-08-08 14:52] VITALS: BP 110/55
[2016-08-08 19:15] VITALS: BP 124/62
[2016-08-08] MEDS ORDERED: VANCOMYCIN 2 GM in IV NORMAL SALINE 500ML BAG 500 ML IV SCH (21:00)
[2016-08-08] MEDS: FAMOTIDINE 20 MG TABLET. PO SCH (21:35)
[2016-08-08] MEDS: GABAPENTIN 300 MG CAPSULE. PO SCH (21:35)
[2016-08-08 23:54] VITALS: BP 130/65
[2016-08-09] MEDS: PIPERACILLIN/TAZOBACTAM 4.5 GM in IV NORMAL SALINE 100ML 100 ML IV SCH ×2 (00:20→06:19)
[2016-08-09 02:45] VITALS: BP 109/63
[2016-08-09] MEDS: LEVOTHYROXINE 25 MCG TABLET. PO SCH (06:19)
[2016-08-09 07:43] VITALS: BP 98/42
[2016-08-09] MEDS: ASPIRIN CHEWABLE 81 MG TABLET. PO SCH (08:00)
[2016-08-09] MEDS: INSULIN ASPART 300 UNITS/3 ML INSULN.PEN SQ SCH (08:00)
[2016-08-09] MEDS: METOPROLOL TART IMMED RELEASE 25 MG TABLET. PO SCH ×2 (08:32→21:00)
--- NOTE | 2016-08-09 09:11 | PDOC ---
Provider Note Provider Note he awakens easily, is lucid and oriented0- is not taking po, legs have more edema but wounds ok- feel he is best served by hospice, d/w daughter and she agrees- pall care consult re planning, no more bipap at his request- , no labs LUKE WATTS MD Aug 09, 2016 09:11
--- NOTE | 2016-08-09 09:39 | PDOC ---
Objective: Objective: Per RN - not eating, keeps removing breathing mask and de-sats quickly. Vital Signs: Vital Signs Date Time Temp Pulse Resp B/P (MAP) Pulse Ox O2 Delivery O2 Flow Rate FiO2 08/09/16 07:43 96.9 51 19 98/42 (60) 90 Venturi Mask 96.9 08/09/16 07:40 9.0 Labs: Laboratory Tests Test 08/08/16 11:55 08/08/16 16:40 08/08/16 20:17 08/09/16 07:55 Glucose (Fingerstick) 164 mg/dL (70-99) 204 mg/dL (70-99) 182 mg/dL (70-99) 128 mg/dL (70-99) PE: GEN: NAD, was asleep LUNGS: venturi mask HEART: bradycardic ABD: obese, non-tender NEURO/PSYCH: answers yes/no A/P: Resp failure, refusing PO Blood in stool - no recurrence -Hgb stable -h/o colon cancer s/p resection and chemo -A Fib, on ASA -- Await palliative care meeting, possible Hospice. HUNG PETERS Aug 09, 2016 09:39
[2016-08-09] MEDS: INSULIN DETEMIR 300 UNITS/3 ML INSULN.PEN. SQ SCH (10:00)
[2016-08-09 10:23] VITALS: BP 96/35
--- NOTE | 2016-08-09 11:19 | PDOC ---
PULMONARY PROGRESS NOTES Subjective fully awake fights BIPAP Vitals Vital Signs Date Time Temp Pulse Resp B/P (MAP) Pulse Ox O2 Delivery O2 Flow Rate FiO2 08/09/16 10:23 96.0 65 23 96/35 (55) 87 Venturi Mask 96.0 08/09/16 07:40 9.0 General: Alert Lungs: Other (decrease bs) Cardiovascular: S1 Abdomen: Soft, Other (oese) Extremities: Other (edema, STASIS) Skin: Warm Labs Laboratory Tests Test 08/07/16 11:37 08/07/16 13:00 08/07/16 16:32 08/07/16 17:10 Glucose (Fingerstick) 163 mg/dL (70-99) 176 mg/dL (70-99) O2 Saturation 91 % (92-99) 94 % (92-99) Arterial Blood pH 7.27 (7.35-7.45) 7.31 (7.35-7.45) Arterial Blood pCO2 at Patient Temp 60 mmHg (35-46) 56 mmHg (35-46) Arterial Blood pO2 at Patient Temp 64 mmHg (65-108) 74 mmHg (65-108) Arterial Blood HCO3 27 mmol/L (21-28) 28 mmol/L (21-28) Arterial Blood Base Excess -1 mmol/L (-3-3) 0 mmol/L (-3-3) FiO2 35 35 Test 08/07/16 20:32 08/08/16 06:00 08/08/16 08:01 08/08/16 11:55 Glucose (Fingerstick) 188 mg/dL (70-99) 185 mg/dL (70-99) 164 mg/dL (70-99) Sodium Level 139 mmol/L (136-145) Potassium Level 5.0 mmol/L (3.5-5.1) Chloride Level 103 mmol/L (98-107) Carbon Dioxide Level 27 mmol/L (21-32) Anion Gap 9 (6-14) Blood Urea Nitrogen 62 mg/dL (8-26) Creatinine 1.8 mg/dL (0.7-1.3) Estimated GFR (Cockcroft-Gault) 37.0 Glucose Level 184 mg/dL (70-99) Calcium Level 8.4 mg/dL (8.5-10.1) Test 08/08/16 16:40 08/08/16 20:17 08/09/16 07:55 Glucose (Fingerstick) 204 mg/dL (70-99) 182 mg/dL (70-99) 128 mg/dL (70-99) Laboratory Tests Test 08/08/16 11:55 08/08/16 16:40 08/08/16 20:17 08/09/16 07:55 Glucose (Fingerstick) 164 mg/dL (70-99) 204 mg/dL (70-99) 182 mg/dL (70-99) 128 mg/dL (70-99) Medications Active Scripts Medications Dose Route/Sig Max Daily Dose Days Date Category Lantus Solostar (Insulin Glargine,Hum.rec.anlog) 100 Unit/1 Ml Insuln.pen 20 Unit SQ DAILYWSUP 07/30/16 Reported Lantus Solostar (Insulin Glargine,Hum.rec.anlog) 100 Unit/1 Ml Insuln.pen 25 Unit SQ DAILYWBKFT 07/30/16 Reported Gabapentin 300 Mg Capsule 300 Mg PO HS 07/30/16 Reported Furosemide 40 Mg Tablet 40 Mg PO DAILY 07/30/16 Reported Metformin Hcl 850 Mg Tablet 850 Mg PO BIDWMEALS 07/30/16 Reported Amlodipine Besylate 2.5 Mg Tablet 2.5 Mg PO DAILY 07/30/16 Reported Lisinopril 40 Mg Tablet 40 Mg PO DAILY 07/30/16 Reported Potassium Chloride 10 Meq Tablet.er 10 Meq PO BID 07/30/16 Reported Aspirin 81 Mg Tab.chew 1 Tab PO DAILY 12/09/13 Reported Impression . 1. Acute hypercapnic respiratory failure/ multifactorial . ABG improved with BIPAP 2. Acute heart failure. Suspect combination of diastolic and systolic. 3. Abnormal CT of the chest revealing multiple findings including a consolidation of right middle lobe with some air bronchograms, need to follow up with repeat CT in 4-6 weeks. 4. Morbid obesity. 5. Suspect acute on chronic renal failure. 6. Protein malnutrition present upon admission. 7. Elevated D-dimer, nonspecific. 8. Negative venous Dopplers of the lower extremities. 9. NSTEMI ABNORMAL STRESS TEST Plan . BIPAP QHS LONG HE CAN TOLERATE REPEAT ABG improved VM DURING DAY ANTIBIOTICS D/W RN AGREE WITH PLANS FOR HOSPICE MIK SALAS MD Aug 09, 2016 11:19
[2016-08-09 14:46] VITALS: BP 120/57
--- NOTE | 2016-08-09 17:22 | PDOC2 ---
PALLIATIVE CARE Palliative Care Note Palliative Care Consult requested by Dr. Silva to address hospice care Patient along with blu and Dr. Silva have long conversation this am about goals and comfort care was decided. Diagnosis; Hypercapnic respiratory failure--multifactorial; improved with BiPap ; acute heart failure; abnormal CT of chest--consolidation of right middle lobe ; obesity, A/C renal failure; protein malnutrition, elevated D-dimer-- nonspecific, NSTMI Patient alert when seen at 1130. Received permission to speak with family and confirmed goal of hospice care. Met with Dorothy, son Les Francois.; Mary Kate dtr. and 3 grandsons. Reviewed current medical condition to include above. Patient desats to 70% occasionally with Ventimask and recovers with BiPap but is not wanting to wear BiPap all the time. Discussed options for comfort care: Home with Hospice vs Mcfp with Hospice vs IP Hospice. Mary Kate --dtr advocated for her father's wishes of going home with Hospice. Dorothy adamant about patient not dying at home. Family asked that PC have further discussion with patient about Hospice House. Patient was in agreement with [facility] Hosp[facility] at [facility]. Outside the hospital DNR/DNI signed by Les Fisher DPSHERRI. Will fax information to [facility] in am. for evaluation Requested copy of POA document. Plan: IP House referral in am DNR/DNI---will need physician signature on form. Family contact: Dorothy owen [phone] Les Fisher DPOA; [phone] Mary Kate: dtr- [phone] PRATIK SHERIDAN Aug 09, 2016 17:22
[2016-08-09 19:00] VITALS: BP 129/60
[2016-08-09] MEDS: FAMOTIDINE 20 MG TABLET. PO SCH (21:15)
[2016-08-09] MEDS: GABAPENTIN 300 MG CAPSULE. PO SCH (21:15)
[2016-08-09 23:00] VITALS: BP 141/65
[2016-08-10 03:10] VITALS: BP 105/54
[2016-08-10] MEDS: LEVOTHYROXINE 25 MCG TABLET. PO SCH (06:40)
[2016-08-10 07:00] VITALS: BP 130/67
[2016-08-10] MEDS: FUROSEMIDE 40 MG TABLET. PO SCH (07:26)
[2016-08-10] MEDS: METOPROLOL TART IMMED RELEASE 25 MG TABLET. PO SCH (07:27)
[2016-08-10] MEDS: ASPIRIN CHEWABLE 81 MG TABLET. PO SCH (08:00)
--- NOTE | 2016-08-10 08:41 | PDOC ---
Provider Note Provider Note [id number] LUKE WATTS MD Aug 10, 2016 08:41
--- NOTE | 2016-08-10 09:47 | PDOC ---
Subjective: Subjective: Doesn't want to eat. Objective: Vital Signs: Vital Signs Date Time Temp Pulse Resp B/P (MAP) Pulse Ox O2 Delivery O2 Flow Rate FiO2 08/10/16 07:13 Venturi Mask 12.0 08/10/16 07:00 97.3 52 16 130/67 (88) 90 97.3 Labs: Laboratory Tests Test 08/09/16 11:50 08/09/16 17:03 08/09/16 20:39 08/10/16 08:02 Glucose (Fingerstick) 116 mg/dL (70-99) 127 mg/dL (70-99) 141 mg/dL (70-99) 129 mg/dL (70-99) PE: GEN: NAD LUNGS: Venturi mask half on ABD: obese, non-tender NEURO/PSYCH: answers yes/no A/P: Resp failure -- Note plans fro Hospice. HUNG PETERS Aug 10, 2016 09:47
[2016-08-10] MEDS: INSULIN DETEMIR 300 UNITS/3 ML INSULN.PEN. SQ SCH (10:00)
[2016-08-10 11:00] VITALS: BP 94/50
--- NOTE | 2016-08-10 12:04 | PDOC ---
PULMONARY PROGRESS NOTES Subjective sleepy/on VM fights BIPAP Vitals Vital Signs Date Time Temp Pulse Resp B/P (MAP) Pulse Ox O2 Delivery O2 Flow Rate FiO2 08/10/16 11:00 96.7 57 16 94/50 (65) 92 Venturi Mask 11.0 96.7 General: Lethargic Lungs: Other (decrease bs) Cardiovascular: S1 Abdomen: Soft, Other (oese) Extremities: Other (edema, STASIS) Skin: Warm Labs Laboratory Tests Test 08/08/16 16:40 08/08/16 20:17 08/09/16 07:55 08/09/16 11:50 Glucose (Fingerstick) 204 mg/dL (70-99) 182 mg/dL (70-99) 128 mg/dL (70-99) 116 mg/dL (70-99) Test 08/09/16 17:03 08/09/16 20:39 08/10/16 08:02 08/10/16 11:34 Glucose (Fingerstick) 127 mg/dL (70-99) 141 mg/dL (70-99) 129 mg/dL (70-99) 137 mg/dL (70-99) Laboratory Tests Test 08/09/16 17:03 08/09/16 20:39 08/10/16 08:02 08/10/16 11:34 Glucose (Fingerstick) 127 mg/dL (70-99) 141 mg/dL (70-99) 129 mg/dL (70-99) 137 mg/dL (70-99) Medications Active Scripts Medications Dose Route/Sig Max Daily Dose Days Date Category Lantus Solostar (Insulin Glargine,Hum.rec.anlog) 100 Unit/1 Ml Insuln.pen 20 Unit SQ DAILYWSUP 07/30/16 Reported Lantus Solostar (Insulin Glargine,Hum.rec.anlog) 100 Unit/1 Ml Insuln.pen 25 Unit SQ DAILYWBKFT 07/30/16 Reported Gabapentin 300 Mg Capsule 300 Mg PO HS 07/30/16 Reported Furosemide 40 Mg Tablet 40 Mg PO DAILY 07/30/16 Reported Metformin Hcl 850 Mg Tablet 850 Mg PO BIDWMEALS 07/30/16 Reported Amlodipine Besylate 2.5 Mg Tablet 2.5 Mg PO DAILY 07/30/16 Reported Lisinopril 40 Mg Tablet 40 Mg PO DAILY 07/30/16 Reported Potassium Chloride 10 Meq Tablet.er 10 Meq PO BID 07/30/16 Reported Aspirin 81 Mg Tab.chew 1 Tab PO DAILY 12/09/13 Reported Impression . 1. Acute hypercapnic respiratory failure/ multifactorial . ABG improved with BIPAP 2. Acute heart failure. Suspect combination of diastolic and systolic. 3. Abnormal CT of the chest revealing multiple findings including a consolidation of right middle lobe with some air bronchograms, need to follow up with repeat CT in 4-6 weeks. 4. Morbid obesity. 5. Suspect acute on chronic renal failure. 6. Protein malnutrition present upon admission. 7. Elevated D-dimer, nonspecific. 8. Negative venous Dopplers of the lower extremities. 9. NSTEMI ABNORMAL STRESS TEST Plan . VM ANTIBIOTICS D/W RN AGREE WITH PLANS FOR HOSPICE POOR PROGNOSIS MIK SALAS MD Aug 10, 2016 12:04
[2016-08-10] MEDS ORDERED: fentaNYL PF VIAL 100 MCG/2 ML VIAL IV ONE (12:15)
--- NOTE | 2016-08-10 19:02 | DS ---
DATE OF DISCHARGE: 08/10/2016 HOSPITAL SUMMARY: A 75-year-old white male came in with increasing shortness of breath, weakness, edema and lethargy. He was found to have mild hypothyroidism with a TSH of 9. ____. Creatinine was elevated around 2.0. Chest x-ray showed evidence of congestive heart failure with a right pleural effusion. Doppler studies and his legs were normal and V/Q scan did not show evidence of pulmonary emboli. 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 He did not respond well to medical interventions with diuretics and did not tolerate BiPAP and continued to be lethargic and sluggish with poor intake. After discussion with he and his family members, it was decided that he wished to be a DNR and did not want interventions including BiPAP or cardiac catheterization as it would likely be greater risk than benefit for him. Hospice was arranged and he will be transferred with the hospice for comfort care and end stage management. FINAL DIAGNOSES: 1. Acute congestive heart failure secondary to dilated cardiomyopathy. 2. Chronic obstructive pulmonary disease, [id number]. 3. Acute renal insufficiency with secondary chronic kidney disease 3. OPERATIONS, PROCEDURES, COMPLICATIONS: None. CONSULTATIONS: Dr. Ignacio, Dr. Silverio. DISPOSITION: Comfort care measures, DNR. There are a few meds except for Synthroid 25 mcg, which is new and his chronic atrial fibrillation will not be treated with anticoagulants as greater risk than benefit and mild bradycardia. Family is aware of his likely preterminal prognosis and comfortable with the disposition. LUKE WATTS MD DR: ALAN/manolo JOB#: [id number] / [id number]
== END 2016-08-10 14:58 | disposition hospice, home (50) | DRG 291 ==
LOC: ER 18:09 → 1 WEST ICU 19:30 → 2 NORTH 07-31 13:00
PROVIDERS: ADMIT Family Medicine; ATTEND Family Medicine
PROC: 5A09357 Assistance with Respiratory Ventilation, Less than 24 Consecutive Hours, Continuous Positive Airway Pressure (ICD-10-PCS; principal; 2016-08-07)
DX: I50.41 Acute combined systolic (congestive) and diastolic (congestive) heart failure (principal); J96.01 Acute respiratory failure with hypoxia; J96.02 Acute respiratory failure with hypercapnia; N17.9 Acute kidney failure, unspecified; I13.0 Hypertensive heart and chronic kidney disease with heart failure and stage 1 through stage 4 chronic kidney disease, or unspecified chronic kidney disease; I42.0 Dilated cardiomyopathy; I48.92 Unspecified atrial flutter; J44.0 Chronic obstructive pulmonary disease with (acute) lower respiratory infection; E46 Unspecified protein-calorie malnutrition; Z68.41 Body mass index [BMI] 40.0-44.9, adult; K92.1 Melena; E03.9 Hypothyroidism, unspecified; E11.649 Type 2 diabetes mellitus with hypoglycemia without coma; E78.00 Pure hypercholesterolemia, unspecified; E78.5 Hyperlipidemia, unspecified; E87.5 Hyperkalemia; E66.01 Morbid (severe) obesity due to excess calories; E11.22 Type 2 diabetes mellitus with diabetic chronic kidney disease; N18.3 Chronic kidney disease, stage 3 (moderate); Z51.5 Encounter for palliative care; M71.20 Synovial cyst of popliteal space [Baker], unspecified knee; G47.33 Obstructive sleep apnea (adult) (pediatric); I87.8 Other specified disorders of veins; M19.90 Unspecified osteoarthritis, unspecified site; Z66 Do not resuscitate; I48.2 Chronic atrial fibrillation; Z79.899 Other long term (current) drug therapy; Z90.49 Acquired absence of other specified parts of digestive tract; Z87.891 Personal history of nicotine dependence; Z85.038 Personal history of other malignant neoplasm of large intestine; Z82.5 Family history of asthma and other chronic lower respiratory diseases; Z79.82 Long term (current) use of aspirin; Z79.4 Long term (current) use of insulin; I25.2 Old myocardial infarction; T50.995A Adverse effect of other drugs, medicaments and biological substances, initial encounter
CPT/HCPCS: 36415; 36600; 71010; 71250; 78452; 80048; 80076; 81001; 82553; 82805; 82962; 83605; 83735; 83880; 84439; 84443; 84480; 84484; 85027; 85379; 85610; 87040; 87324; 87641; 93005; 93017; 93306; 93970; 94250; 94620; 94640; 94660; 94760; 96365; 96367; 96374; 96375; 96376; A9500; J0696; J1650; J1815; J1940; J2543; J2785; J3010; J3370; J7040; J7042; J7620; 97110; 97116; 97530; 99285-25